=== PATIENT | male | born 1980 | race Caucasian/White ===

== ENCOUNTER 2017-09-13 14:58 | Inpatient (IN) | payer SELFPAY ==
[~2017-09-13 14:58] MED LIST: Heparin 1,000 UNITS/ML VIAL ONE
[2017-09-13 15:42] LABS: Hemoglobin 14.5 g/dL (14.0-18.0); Mean Corpuscular HGB CONC 33.5 g/dL (32.0-36.0); Mean Corpuscular Hemoglobin 32.7 pg (27.0-31.0); Mean Corpuscular Volume 97.7 fl (80.0-94.0); Platelet Count 357 thou/uL (130-400); RBC Distribution Width 12.7 % (11.5-14.5); Red Blood Cell (RBC) Count 4.43 mill/uL (4.70-6.10); White Blood Cell (WBC) Count 26.2 thou/uL (4.8-10.8)
[2017-09-13 15:45] LABS: INR-International Normal Ratio 1.1; PTT 33.5 SEC (22.9-36.1); Prothrombin Time 14.6 SEC (12.0-14.7)
[2017-09-13 15:56] LABS: Band 21 % (5-11); Dohle Bodies SLIGHT; Lymphocytes 1 % (21-51); MDiff Complete? YES; Metamyelocyte 1 % (0-0); Monocytes 9 % (0-10); Neutrophil 65 % (42-75); PLT Morphology Comment Appears Adequate; RBC Morphology Normal; Reactive Lymphocytes 3 % (0-10); Toxic Granulation SLIGHT; Vacuoles SLIGHT
--- NOTE | 2017-09-13 15:59 | RAD ---
PORTABLE CHEST: Date: 09/13/17 HISTORY: Preop. FINDINGS: Heart size and mediastinum are within normal limits. Lungs are clear of infiltrates. No bony findings . IMPRESSION: No active intrathoracic disease. POS: [facility]
[2017-09-13 16:01] LABS: CRP (Inflammatory) 26.49 mg/dL (= or < 0.5)
[2017-09-13 16:02] LABS: ALT (SGPT) 15 U/L (8-55); AST (SGOT) 17 U/L (5-34); Alkaline Phosphatase 150 U/L (40-150); Anion Gap 13 mmol/L (10-20); BUN (Urea Nitrogen) 5 mg/dL (8.9-20.6); Bilirubin, Total 0.6 mg/dL (0.2-1.2); Calc. Creatinine Clearance 0 mL/min (70-130); Calcium 9.4 mg/dL (7.8-10.44); Carbon Dioxide 31 mmol/L (22-29); Chloride 96 mmol/L (98-107); Estimated GFR-MDRD Greater than 90; Globulin 4.3 g/dL (2.4-3.5); Glucose 92 mg/dL (70-105); Potassium 3.1 mmol/L (3.5-5.1); Protein, Total 7.3 g/dL (6.0-8.3); Sodium 137 mmol/L (136-145)
[2017-09-13] MEDS ORDERED: Lidocaine 2% PF 5 ML VIAL ONE (16:29)
[2017-09-13] MEDS ORDERED: Morphine 4 MG/ML Carpuject IVP PRN (17:11)
[2017-09-13] MEDS ORDERED: Acetaminophen 325 MG TAB PO PRN (17:11)
[2017-09-13] MEDS ORDERED: Promethazine HCl 25 MG/ML VIAL IM PRN (17:11)
[2017-09-13] MEDS ORDERED: Ondansetron HCl/PF 4 MG/2 ML Vial IVP PRN (17:11)
[2017-09-13] MEDS ORDERED: Fentanyl 100 MCG/2 ML VIAL SLOW IVP PRN (17:11)
[2017-09-13] MEDS ORDERED: traMADol HCl 50 MG TAB PO PRN (17:11)
[2017-09-13] MEDS ORDERED: HYDROcodone/Acetaminophen 10/325 mg Tablet PO PRN (17:11)
[2017-09-13 17:12] LABS: Body Fluid Source SYNOVIAL FLUID
[2017-09-13 17:13] LABS: BF Color Red; Clarity Cloudy/Turbid (Clear); RBC Count-Automated 33000 /cumm; Tube # EDTA; WBC/NonHematic-Auto 540 /cumm
[2017-09-13] MEDS ORDERED: Piperacillin/Tazobactam 3.375 GM in Sodium Chloride 0.9% 100 ML IVPB SCH (17:15)
[2017-09-13] MEDS ORDERED: Adacel (T-DAP) 0.5 ML VIAL ONE ×2 (17:32→17:59)
--- NOTE | 2017-09-13 17:37 | CON ---
DATE OF CONSULTATION: 09/13/2017 HISTORY OF PRESENT ILLNESS: We were asked to see patient by the ER, the patient was apparently trans ferred from [facility] in [place] for concern of necrotizing fasciitis. Patient states earlier this w douglas on Sunday and Sunday timeframe, he started having some knee pain. The knee was starting to get swollen and painful. He went in to get seen, his knee was not tapped, he was admitted, put on some antibiotics. He states his white blood cell count has increased when he came in for the doctors and he was put on some antibiotics, got a little bit better, but then his whole left lower extremity star kera to balloon up, get red tissue blisters and significantly painful. He has multiple areas of his l eg where he is outlined from changes in the redness and swelling and shows quite a quick progression. The patient was then treated with further IV antibiotics, he states 5 different ones, but the leg c ontinued to get progressively worse. He has sensations in the legs and a lot of pain. The patient p tuyet to this states he is very healthy. 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 He does not see a doctor regularly because he has no current h ealth issues that he knows of. ALLERGIES: No allergies. CURRENT MEDICATIONS: Antibiotics, he has received cefepime, clindamycin. He has had Lovenox, vancom ycin, metronidazole and medications for pain. FAMILY HISTORY: Noncontributory. SOCIAL HISTORY: He works in construction, . Has a few cigarettes a day, chews tobacco, has o ccasional ETOH beverage beer every once in a while. PAST SURGICAL HISTORY: None. REVIEW OF SYSTEMS: Healthy other than this significantly painful left lower extremity. PHYSICAL EXAMINATION: GENERAL: Well-nourished, well-developed male resting in bed in moderate amount of distress. He just had his knee tap, so he is in quite a bit of pain. Speech clear. Answers questions appropriately, he is alert and oriented x3. HEENT: Normal exam. Face is symmetric. Tongue midline. NECK: Supple. EXTREMITIES: Upper extremities: Equal size, shape, symmetry, normal bulk and tone. Lower extremiti es, right lower extremity: Normal exam. Left lower extremity, entire leg is much larger with much m ore edema and redness than the right lower extremity, very warm to the top all the way up to the groi n which is circumferential around the whole leg and posterior leg has multiple areas of tissue bliste rs. Anterior leg, his knee is a little weepy with some yellow fluid from the recent knee tap. He gay s good sensations on the left lower extremity. DP, PT pulses on the left lower extremity are faintly palpable, right are normal. He is able to move the left lower extremity fair at best. It is in suc h amount of pain and so swelling, he is unable to move foot, ankle, knee. Hip, he can move in and ou t okay and does not have a lot of pain. His knee is definitely palpable for increased amount of flui d and very tender to palpation. ASSESSMENT: 1. Significant cellulitis to the left lower extremity. 2. Knee effusion. PLAN: I spoke with patient, would like to get him into the OR this evening to get that knee washed o ut. He will probably need Infectious Disease to follow him, also knee fluid has been sent off for cu lture, sensitivity, protein, cell count, Gram stain, uric acid and crystals per the ER physician. We will keep him n.p.o. He has not eaten today. Consent him for I and D washout of that knee, get him some pain meds for comfort. I have explained the procedure to the patient. He is amenable to go fo rth with surgical washout. This is Jack Mason PA-C dictating for Dr. Glynn Agarwal.
[2017-09-13 17:46] LABS: BF Segmented Neutrophils 67 %; Cell Count Non Hematic 31 %; Lymphocytes 2 %
[2017-09-13] MEDS ORDERED: Neomycin-Polymyxin 1 ML AMP ONE (17:59)
[2017-09-13] MEDS ORDERED: Ketorolac Tromethamine 30 MG/ML VIAL IVP SCH (18:00)
[2017-09-13] MEDS ORDERED: HYDROcodone/Acetaminophen 10/325 mg Tablet ONE (18:42)
[2017-09-13] MEDS: HYDROcodone/Acetaminophen 10/325 mg Tablet PO PRN (21:04)
[2017-09-13] MEDS: Ketorolac Tromethamine 30 MG/ML VIAL IVP SCH (21:05)
[2017-09-13] MEDS: Clindamycin/D5W 900 MG in Premix Bag 1 BAG IVPB SCH (23:16)
[2017-09-14] MEDS: HYDROcodone/Acetaminophen 10/325 mg Tablet PO PRN ×6 (01:02→23:08)
[2017-09-14 02:27] VITALS: BMI 25.9
[2017-09-14] MEDS: Ketorolac Tromethamine 30 MG/ML VIAL IVP SCH ×4 (03:48→21:13)
[2017-09-14 04:50] LABS: Band 17 % (5-11); Hemoglobin 12.7 g/dL (14.0-18.0); Lymphocytes 7 % (21-51); MDiff Complete? YES; Mean Corpuscular HGB CONC 33.2 g/dL (32.0-36.0); Mean Corpuscular Hemoglobin 32.5 pg (27.0-31.0); Mean Corpuscular Volume 97.9 fl (80.0-94.0); Mean Platelet Volume 7.2 fL (7.4-10.4); Metamyelocyte 1 % (0-0); Monocytes 10 % (0-10); Neutrophil 65 % (42-75); PLT Morphology Comment Appears Adequate; Platelet Count 361 thou/uL (130-400); RBC Distribution Width 12.5 % (11.5-14.5); White Blood Cell (WBC) Count 23.5 thou/uL (4.8-10.8)
[2017-09-14] MEDS: Vancomycin HCl 1 GM in Premix Bag 1 BAG IVPB SCH ×2 (05:22→17:36)
[2017-09-14] MEDS: Clindamycin/D5W 900 MG in Premix Bag 1 BAG IVPB SCH ×3 (05:22→21:22)
[2017-09-14] MEDS: Enoxaparin Sodium 30 MG/0.3 ML SYRINGE SC SCH (09:51)
[2017-09-14] MEDS: cefTRIAXone\\ROCEPHIN 2 GM in Sodium Chloride 0.9% 100 ML IVPB SCH (15:07)
--- NOTE | 2017-09-14 15:11 | CON ---
DATE OF CONSULTATION: 09/14/2017 REASON FOR CONSULTATION: Left lower extremity inflammatory process. 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 Patient did not pay much attention to the injury he had pants on and felt a little bit of pain, but preceded with his work in the next few days, he noticed redness around the prepatellar region as well as an area of blistering in the popliteal fossa left lower extremity. He then noticed extension of the inflammatory process along the lateral aspect of the left leg, which prompted him to go to the emergency room in [facility] and he was then admitted, given antimicrobial therapy and a few days later was transferred to [facility] and he was given more antimicrobials and then transferred over here because of worsening of the neutrophilia and concern with possible necrotizing infection. MRI that was done twice, the first one in [place] and the second in [place]. The second report shows a posterior horn of the medial meniscus and small joint effusion and extensive evidence of cellulitis, but no organized fluid collection noted. No bony abnormalities noted. The second MRI did not show any facial involvement. Currently, he feels some improvement in the inflammatory changes, although there are quite extensive still the pain is light to moderate. Denies any headaches, visual symptoms, sore throat, odynophagia, dysphagia, no cough or sputum production or chest pain, no abdominal pain, no diarrhea, no genitourinary symptoms. He does not have much pain in the knee, left side. PAST MEDICAL HISTORY: Otherwise, negative. PAST SURGICAL HISTORY: He has no prior surgical history. SOCIAL HISTORY: Works in construction. He drinks and smokes. ALLERGIES: None. CURRENT MEDICATIONS: Include clindamycin and vancomycin. FAMILY HISTORY: Noncontributory. PHYSICAL EXAMINATION: VITAL SIGNS: With normal temperature, blood pressure 134/85, pulse 94, respirations 16-20, O2 saturation 98%. GENERAL: He does not appear in distress. The left lower extremity shows extensive erythema extending from the ankle all the way to the gluteal skin region with the blistering along the lateral aspect and medial aspect. There is some rupture of some blisters on the medial aspect. He has an area of brownish at the popliteal crease left side. There is a number of blisters along the lateral aspect extending from the ankle all the way to the lateral thigh. No other skin lesions. No petechiae or purpura. No lymphadenopathy. HEENT: Noncontributory. NECK: Supple. LUNGS: With symmetric, clear breath sounds. HEART: S1, S2, regular rate. No S3 or S4. ABDOMEN: Soft, not distended, or tender. No ascites. No bladder distention. EXTREMITIES: No other joint inflammatory process. The left knee has some fluid in it still, but not very tender. The prepatellar region is not tender. Range of motion is somewhat limited because of the inflammatory process. LABORATORY DATA: Shows a white cell count was 26,000, now 23,000, hemoglobin 14 and 12, platelets 261, 65% neutrophils, bands are down from 17%. Chemistry with a carbon dioxide 31, creatinine 0.77. Liver profile normal. CRP 26. Albumin 3.0. Chest x-ray with no findings of significance. The patient had synovial fluid aspirated by Orthopedic Surgery and the analysis of the material showed only 540 wbc's and mostly rbc's, probably from the tip predominance of segmented neutrophils. ASSESSMENT: Inflammatory process right lower extremity with evidence of cellulitis and reactive fluid in the left knee without significant amount of WBCs per cubic millimeter, not suggestive of infective arthritis. DISCUSSION: Differential diagnosis includes streptococcal cellulitis either group B or group A streptococcal cellulitis. Vibrio or Staphylococcus less likely. Septic arthritis is less likely since the amount of WBCs per cubic millimeter in the synovial fluid is less than what one would expect with infectious arthritis. Necrotizing fasciitis is less likely as well. We will submit cultures from one of the blister fluid, although those typically are negative. Add Rocephin to the current regimen. Continue remainder antimicrobials, treat with antimicrobials only for the time being, I do not think he needs any surgical intervention at this point in time. Keep the extremity elevated and check HIV, hepatitis C serology. MTDD
--- NOTE | 2017-09-14 15:13 | PDOC.PN ---
- Subjective Encounter Start Date: 09/14/17 Encounter Start Time: 15:17 Subjective: No new complaints. Reports pain well controlled. -: No acute events overnight. - Objective MAR Reviewed: Yes Vital Signs & Weight: Vital Signs (12 hours) Temp Pulse Resp BP Pulse Ox 09/14/17 11:10 98.2 F 94 20 134/85 98 09/14/17 08:00 98.2 F 94 16 09/14/17 07:15 98.2 F 94 16 138/85 96 09/14/17 05:00 97.9 F 98 19 127/75 97 Weight Weight 196 lb 13.965 oz I&O: 09/13/17 09/14/17 09/15/17 06:59 06:59 06:59 Intake Total 1300 Output Total 1525 Balance -225 Result Diagrams: 09/14/17 03:38 09/13/17 15:34 Phys Exam - Physical Examination Constitutional: NAD HEENT: PERRLA, moist MMs, sclera anicteric Neck: supple, full ROM Respiratory: no wheezing, no rales, no rhonchi, clear to auscultation bilateral Cardiovascular: RRR, no significant murmur, no rub Gastrointestinal: soft, non-tender, no distention, positive bowel sounds Musculoskeletal: edema present LLE up to groin. Neurological: non-focal, moves all 4 limbs Psychiatric: normal affect, A&O x 3 Deviation from normal: Marked erythema, edema, differential warmth and scattered blisters Dx/Plan (1) Cellulitis of left lower extremity Code(s): L03.116 - CELLULITIS OF LEFT LOWER LIMB Status: Acute Comment: Initial concern for necrotizing fasciitis. Cultures taken Reviwed by ID and started on Ceftriaxone, Vanc and clindamycin. (2) Knee effusion, left Code(s): M25.462 - EFFUSION, LEFT KNEE Status: Acute Plan: s/p washout. - Plan cont current plan of care, continue antibiotics, DVT proph w/lovenox f/u blood cultures, hepatitis and HIV screening. -: Continue broad spectrum antibiotics. -: Ensure adequate pain control. * .
[2017-09-14 17:14] LABS: HIV (1/2) Antibody/Antigen Non-Reactive (NonReactive); HIV 1/2 INDEX 0.57 S/CO (<1.00); Hep C IgG Ab Non-Reactive (NonReactive); Hep C Index 0.07 S/CO (0-0.79)
[2017-09-14] MEDS: Potassium Chloride 20 MEQ TAB PO SCH (17:36)
[2017-09-15] MEDS: Ketorolac Tromethamine 30 MG/ML VIAL IVP SCH ×4 (03:06→21:37)
[2017-09-15 04:57] LABS: Anion Gap 11 mmol/L (10-20); BUN (Urea Nitrogen) 6 mg/dL (8.9-20.6); Calc. Creatinine Clearance 184 mL/min (70-130); Calcium 8.7 mg/dL (7.8-10.44); Carbon Dioxide 29 mmol/L (22-29); Chloride 100 mmol/L (98-107); Estimated GFR-MDRD Greater than 90; Glucose 114 mg/dL (70-105); Potassium 3.6 mmol/L (3.5-5.1); Sodium 136 mmol/L (136-145); Vancomycin, Trough 5.1 ug/mL
[2017-09-15] MEDS: Vancomycin HCl 1 GM in Premix Bag 1 BAG IVPB SCH ×2 (05:00→17:27)
[2017-09-15 05:31] LABS: Band 16 % (5-11); Eosinophils 3 % (0-10); Hemoglobin 13.3 g/dL (14.0-18.0); Lymphocytes 14 % (21-51); MDiff Complete? YES; Macrocytosis SLIGHT = 6-15 cells (100X) (0-5/hpf); Mean Corpuscular HGB CONC 32.5 g/dL (32.0-36.0); Mean Corpuscular Hemoglobin 32.2 pg (27.0-31.0); Mean Platelet Volume 6.9 fL (7.4-10.4); Metamyelocyte 4 % (0-0); Monocytes 6 % (0-10); Myelocyte 2 % (0-0); Neutrophil 55 % (42-75); PLT Morphology Comment Appears Increased; Platelet Count 483 thou/uL (130-400); RBC Distribution Width 12.6 % (11.5-14.5); Red Blood Cell (RBC) Count 4.13 mill/uL (4.70-6.10); White Blood Cell (WBC) Count 22.4 thou/uL (4.8-10.8)
[2017-09-15] MEDS: Clindamycin/D5W 900 MG in Premix Bag 1 BAG IVPB SCH ×3 (06:13→21:37)
[2017-09-15] MEDS: HYDROcodone/Acetaminophen 10/325 mg Tablet PO PRN ×4 (07:37→19:40)
[2017-09-15] MEDS: Enoxaparin Sodium 30 MG/0.3 ML SYRINGE SC SCH (07:38)
[2017-09-15] MEDS: Potassium Chloride 20 MEQ TAB PO SCH ×2 (07:38→17:26)
--- NOTE | 2017-09-15 11:52 | PDOC.PN ---
- Subjective Encounter Start Date: 09/15/17 Encounter Start Time: 11:50 Subjective: LL leg still uncomfortable, no fever, chills - Objective MAR Reviewed: Yes Vital Signs & Weight: Vital Signs (12 hours) Temp Pulse Resp BP Pulse Ox 09/15/17 07:58 98.7 F 88 18 09/15/17 07:05 99.3 F 98 18 156/84 H 98 09/15/17 04:00 98.7 F 88 18 131/78 96 09/15/17 00:00 98.3 F 95 18 150/82 H 94 L Weight Weight 196 lb 13.965 oz I&O: 09/14/17 09/15/17 09/16/17 06:59 06:59 06:59 Intake Total 1300 2800 Output Total 1525 1600 Balance -225 1200 Result Diagrams: 09/15/17 04:15 09/15/17 04:15 Phys Exam - Physical Examination Neck: no JVD Respiratory: clear to auscultation bilateral Cardiovascular: RRR, no significant murmur Gastrointestinal: soft, positive bowel sounds Musculoskeletal: no edema Deviation from normal: marked erythema ankle to knee on Left Dx/Plan (1) Cellulitis of left lower extremity Code(s): L03.116 - CELLULITIS OF LEFT LOWER LIMB Status: Acute Comment: Initial concern for necrotizing fasciitis. Cultures taken Reviwed by ID and started on Ceftriaxone, Vanc and clindamycin. (2) Knee effusion, left Code(s): M25.462 - EFFUSION, LEFT KNEE Status: Acute - Plan cont iv antibx, C&S neg to date -: adequate pain control * .
--- NOTE | 2017-09-15 14:17 | PRG ---
DATE OF SERVICE: 09/15/2017 SUBJECTIVE: Little bit better, but not much, has still quite a bit of pain. No headaches, respirato ry symptoms, no back pain, no abdominal pain, no diarrhea. Voiding without difficulty. T-max 99.3. Other vital signs not remarkable. Left lower extremity still with quite a bit of inflammatory barreto es. The extent of the erythema is about the same as previously noted. A lot of the blisters are now rupturing and the being unroofed with exposure of the underlying dermal layer, which has a hemorrhag ic component. No purulence noted. The extremity is less swollen than before and less tender. No mai int inflammatory process noted. OBJECTIVE: HEENT: His ocular movements are conjugate. Oral cavity normal. NECK: Supple. LUNGS: Clear to auscultation and percussion. HEART: S1, S2, regular rate. ABDOMEN: Soft and not distended. EXTREMITIES: He is able to move all extremities equally except for limitations imposed by the inflam matory process of left lower extremity. NEUROLOGIC: Cognitive function normal. LABORATORY DATA: White cell count down to 22.4, hemoglobin 13, platelets 483. Still with 16% bands. Chemistries are essentially normal. CRP of 15.4, hepatitis C and HIV serology negative. Microbiol ogy with negative blood cultures and the knee aspirate negative as well. There is a possible growth in nutrient broth subculture in progress. ASSESSMENT: Extensive cellulitis of left lower extremity with some improvement over the past few day s. Most likely scenario is Streptococcal cellulitis, probably with Streptococcus pyogenes. Continue current regimen. Wait on the cultures from the knee. The knee fluid itself was not typical of what one would see with septic arthritis, although he may have early implantation of streptococcal coloni es in the knee, which led to the reaction noted. If it turns out that he does have Streptococcus pyo genes in the knee or other streptococcal pathogen, then that would require extension of the treatment , but probably not arthroscopic debridement at least according to the current clinical findings. He still has quite a bit of inflammatory changes and will likely remain in the hospital for quite a f ew more days.
[2017-09-15] MEDS: Polyethylene Glycol 3350 17 GM Packet PO SCH (14:21)
[2017-09-15] MEDS ORDERED: Polyethylene Glycol 3350 17 GM Packet PO SCH (14:30)
[2017-09-15] MEDS: cefTRIAXone\\ROCEPHIN 2 GM in Sodium Chloride 0.9% 100 ML IVPB SCH (15:31)
[2017-09-15] MEDS: traMADol HCl 50 MG TAB PO PRN ×2 (16:11→21:37)
--- NOTE | 2017-09-15 17:05 | EKG ---
Test Reason : Blood Pressure : / mmHG Vent. Rate : 097 BPM Atrial Rate : 097 BPM P-R Int : 136 ms QRS Dur : 094 ms QT Int : 364 ms P-R-T Axes : 045 020 014 degrees QTc Int : 462 ms Normal sinus rhythm Minimal voltage criteria for LVH, may be normal variant Nonspecific ST and T wave abnormality Prolonged QT Abnormal ECG Confirmed by JOSE NGUYEN D.O. ([id number]), telegraph editor DOMINGO DRAKE ([id number] on 09/15/2017 5:04:38 PM Referred By: Confirmed By:JOSE NGUYEN D.O.
[2017-09-16] MEDS: HYDROcodone/Acetaminophen 10/325 mg Tablet PO PRN ×6 (00:28→20:38)
[2017-09-16] MEDS: Ketorolac Tromethamine 30 MG/ML VIAL IVP SCH ×4 (03:31→20:39)
[2017-09-16] MEDS: traMADol HCl 50 MG TAB PO PRN ×3 (03:32→17:59)
[2017-09-16 04:31] LABS: Band 17 % (5-11); Hemoglobin 13.3 g/dL (14.0-18.0); Lymphocytes 9 % (21-51); MDiff Complete? YES; Mean Corpuscular HGB CONC 31.2 g/dL (32.0-36.0); Mean Corpuscular Hemoglobin 30.8 pg (27.0-31.0); Mean Corpuscular Volume 98.7 fl (80.0-94.0); Metamyelocyte 2 % (0-0); Monocytes 3 % (0-10); Neutrophil 69 % (42-75); PLT Morphology Comment Appears Increased; Platelet Count 485 thou/uL (130-400); RBC Distribution Width 12.7 % (11.5-14.5); White Blood Cell (WBC) Count 20.4 thou/uL (4.8-10.8)
[2017-09-16] MEDS: Vancomycin HCl 1 GM in Premix Bag 1 BAG IVPB SCH ×2 (04:38→16:51)
[2017-09-16 04:42] LABS: Anion Gap 11 mmol/L (10-20); BUN (Urea Nitrogen) 5 mg/dL (8.9-20.6); Calc. Creatinine Clearance 205 mL/min (70-130); Calcium 8.4 mg/dL (7.8-10.44); Carbon Dioxide 25 mmol/L (22-29); Chloride 104 mmol/L (98-107); Estimated GFR-MDRD Greater than 90; Glucose 78 mg/dL (70-105); Sodium 135 mmol/L (136-145)
[2017-09-16] MEDS: Clindamycin/D5W 900 MG in Premix Bag 1 BAG IVPB SCH ×3 (06:39→21:43)
[2017-09-16] MEDS ORDERED: Milk Of Magnesia 30 ML UDCUP PO PRN (07:13)
[2017-09-16] MEDS ORDERED: hydrALAZINE 20 MG/ML VIAL SLOW IVP PRN (07:13)
[2017-09-16] MEDS ORDERED: Ondansetron ODT 4 MG TAB PO PRN (07:13)
[2017-09-16] MEDS ORDERED: Temazepam 15 MG CAP PO PRN (07:13)
[2017-09-16] MEDS ORDERED: Senokot 8.6 MG TAB PO PRN (07:13)
[2017-09-16] MEDS ORDERED: HYDROcodone/Acetaminophen 5/325 mg Tablet PO PRN (07:13)
[2017-09-16] MEDS ORDERED: Chloraseptic Spray 180 ml Bottle PO PRN (07:13)
[2017-09-16] MEDS ORDERED: Mag-Al 1200 mg/1200 mg/30 ML UDCUP PO PRN (07:13)
[2017-09-16] MEDS ORDERED: Diabetic Tussin 200 MG/10 ML UDCUP PO PRN (07:13)
[2017-09-16] MEDS ORDERED: Loperamide HCl 2 MG CAP PO PRN (07:13)
[2017-09-16] MEDS ORDERED: Sodium Chloride 0.65% Nasal 44 ML BOT EA NARE PRN (07:13)
[2017-09-16] MEDS ORDERED: Eucerin (Mineral Oil/Petrolatum,White) 30 gm Jar TOP PRN (07:13)
[2017-09-16] MEDS ORDERED: Loratadine 10 MG TAB PO PRN (07:13)
[2017-09-16] MEDS ORDERED: Artificial Tears 18 DROP/0.9 ML EA EYE PRN (07:13)
[2017-09-16] MEDS: Enoxaparin Sodium 30 MG/0.3 ML SYRINGE SC SCH (08:39)
[2017-09-16] MEDS: Famotidine 20 MG TAB PO SCH ×2 (08:40→20:39)
--- NOTE | 2017-09-16 10:05 | PDOC.PN ---
- Subjective Encounter Start Date: 09/16/17 Encounter Start Time: 08:00 -: old records requested/rev Patient seen and examined. No new complaints. No overnight events - Objective MAR Reviewed: Yes Vital Signs & Weight: Vital Signs (12 hours) Temp Pulse Resp BP Pulse Ox 09/16/17 08:57 97.9 F 86 16 93 L 09/16/17 07:47 97.9 F 86 16 134/79 93 L 09/16/17 07:10 97.9 F 86 16 134/79 93 L 09/16/17 05:28 97 09/16/17 04:00 98.3 F 92 18 135/72 97 09/15/17 23:58 98.1 F 90 20 130/75 95 Weight Weight 196 lb 13.965 oz I&O: 09/15/17 09/16/17 09/17/17 06:59 06:59 06:59 Intake Total 2800 2600 Output Total 1600 1900 Balance 1200 700 Result Diagrams: 09/16/17 03:41 09/16/17 03:41 Phys Exam - Physical Examination Constitutional: NAD HEENT: PERRLA, moist MMs, sclera anicteric Neck: no JVD, supple Respiratory: no wheezing, no rales, no rhonchi Cardiovascular: RRR, no significant murmur, no rub Gastrointestinal: soft, non-tender, no distention, positive bowel sounds Musculoskeletal: no edema, pulses present left knee and leg swelling and tender Neurological: non-focal, normal sensation, moves all 4 limbs Psychiatric: normal affect, A&O x 3 Skin: no rash, normal turgor Dx/Plan (1) Cellulitis of left lower extremity Code(s): L03.116 - CELLULITIS OF LEFT LOWER LIMB Status: Acute Comment: (2) Hypokalemia Code(s): E87.6 - HYPOKALEMIA Status: Acute (3) Knee effusion, left Code(s): M25.462 - EFFUSION, LEFT KNEE Status: Acute - Plan cont current plan of care, continue antibiotics * pain control * continue IV antibiotics * repeat labs tomorrow * medication reviewed as below * symptomatic treatment. Review of Systems - Review of Systems ENT: negative: Ear Pain, Ear Discharge, Nose Pain, Nose Discharge, Nose Congestion, Mouth Pain, Mouth Swelling, Throat Pain, Throat Swelling, Other Respiratory: negative: Cough, Dry, Shortness of Breath, Hemoptysis, SOB with Excertion, Pleuritic Pain, Sputum, Wheezing Cardiovascular: negative: chest pain, palpitations, orthopnea, paroxysmal nocturnal dyspnea, edema, light headedness, other Gastrointestinal: negative: Nausea, Vomiting, Abdominal Pain, Diarrhea, Constipation, Melena, Hematochezia, Other Genitourinary: negative: Dysuria, Frequency, Incontinence, Hematuria, Retention , Other Musculoskeletal: Leg Pain. negative: Neck Pain, Shoulder Pain, Arm Pain, Back Pain, Hand Pain, Foot Pain, Other Skin: negative: Rash, Lesions, Isaac, Bruising, Other - Medications/Allergies Allergies/Adverse Reactions: Allergies Allergy/AdvReac Type Severity Reaction Status Date / Time No Known Allergies Allergy Unverified 09/13/17 17:12 Medications: Current Medications Acetaminophen (Tylenol) 650 mg PO Q6H PRN PRN Reason: Headache/Temp >101F/Mild Pain Hydrocodone Bitart/Acetaminophen (Linneus 10/325) 1 tab PO Q4H PRN PRN Reason: Moderate Pain (4-6) Hydrocodone Bitart/Acetaminophen (Linneus 10/325) 2 tab PO Q4H PRN PRN Reason: Severe Pain (7-10) Last Admin: 09/16/17 08:40 Dose: 2 tab Hydrocodone Bitart/Acetaminophen (Linneus 5/325) 1 tab PO Q4H PRN PRN Reason: Moderate Pain (4-6) Al Hydroxide/Mg Hydroxide (Maalox) 15 ml PO Q4H PRN PRN Reason: Heartburn or Indigestion Artificial Tears (Tears Naturale) 0 drop EA EYE PRN PRN PRN Reason: Dry Eyes Enoxaparin Sodium (Lovenox) 30 mg SC 0900 [facility] Last Admin: 09/16/17 08:39 Dose: 30 mg Famotidine (Pepcid) 20 mg PO BID [facility] Last Admin: 09/16/17 08:40 Dose: 20 mg Fentanyl (Sublimaze) 50 mcg SLOW IVP Q30M PRN PRN Reason: Severe breakthrough pain Guaifenesin (Robitussin Sf) 200 mg PO Q4H PRN PRN Reason: Cough Hydralazine HCl (Apresoline) 10 mg SLOW IVP Q4H PRN PRN Reason: Systolic BP > 180 Clindamycin Phosphate/Dextrose (900 mg/ Device) 50 mls @ 100 mls/hr IVPB Q8HR [facility] Last Admin: 09/16/17 06:39 Dose: 50 mls Vancomycin HCl 1 gm/ Device 200 mls @ 200 mls/hr IVPB 0500,1700 [facility] Last Admin: 09/16/17 04:38 Dose: 200 mls Ceftriaxone Sodium 2 gm/ (Sodium Chloride) 100 mls @ 200 mls/hr IVPB Q24HR [facility] Last Admin: 09/15/17 15:31 Dose: 100 mls Ketorolac Tromethamine (Toradol) 15 mg IVP 0300,0900,1500,2100 [facility] Stop: 09/18/17 21:01 Last Admin: 09/16/17 08:39 Dose: 15 mg Loperamide HCl (Imodium) 2 mg PO PRN PRN PRN Reason: Diarrhea/Loose Stools Loratadine (Claritin) 10 mg PO DAILYPRN PRN PRN Reason: Sinus Symptoms Magnesium Hydroxide (Milk Of Magnesium) 30 ml PO DAILYPRN PRN PRN Reason: Constipation Mineral Oil/White Petrolatum (Eucerin Cream) 0 gm TOP BIDPRN PRN PRN Reason: Dry Skin Morphine Sulfate (Morphine) 2 mg IVP Q2H PRN PRN Reason: Moderate Pain (4-6) Morphine Sulfate (Morphine) 4 mg IVP Q2H PRN PRN Reason: Severe Pain (7-10) Ondansetron HCl (Zofran) 4 mg IVP Q6H PRN PRN Reason: Nausea Ondansetron HCl (Zofran Odt) 4 mg PO Q6H PRN PRN Reason: Nausea/Vomiting Phenol (Chloraseptic Mitchell 180 Ml Bot) 0 ml PO PRN PRN PRN Reason: Sore Throat Polyethylene Glycol (Miralax) 17 gm PO DAILY [facility] Last Admin: 09/15/17 14:21 Dose: 17 gm Promethazine HCl (Phenergan) 12.5 mg IM Q4H PRN PRN Reason: Nausea Senna (Senokot) 2 tab PO HSPRN PRN PRN Reason: Constipation Sodium Chloride (Flush - Normal Saline) 10 ml IVF PRN PRN PRN Reason: Saline Flush Sodium Chloride (Flush - Normal Saline) 10 ml IVF Q12HR [facility] Last Admin: 09/16/17 08:41 Dose: 10 ml Sodium Chloride (Denali Nasal Mitchell 0.65%) 0 ml EA NARE QIDPRN PRN PRN Reason: Nasal Congestion Temazepam (Restoril) 15 mg PO HSPRN PRN PRN Reason: Insomnia Tramadol HCl (Ultram) 50 mg PO Q6H PRN PRN Reason: Mild Pain (1-3) Tramadol HCl (Ultram) 100 mg PO Q6H PRN PRN Reason: Moderate Pain (4-6) Last Admin: 09/16/17 03:32 Dose: 100 mg
[2017-09-16] MEDS: cefTRIAXone\\ROCEPHIN 2 GM in Sodium Chloride 0.9% 100 ML IVPB SCH (14:51)
[2017-09-17] MEDS: Ketorolac Tromethamine 30 MG/ML VIAL IVP SCH ×4 (03:17→21:02)
[2017-09-17] MEDS: HYDROcodone/Acetaminophen 10/325 mg Tablet PO PRN ×5 (03:18→20:02)
[2017-09-17] MEDS: Vancomycin HCl 1 GM in Premix Bag 1 BAG IVPB SCH ×2 (05:20→16:52)
[2017-09-17 06:04] LABS: Anion Gap 12 mmol/L (10-20); BUN (Urea Nitrogen) 9 mg/dL (8.9-20.6); Calc. Creatinine Clearance 190 mL/min (70-130); Calcium 8.8 mg/dL (7.8-10.44); Carbon Dioxide 26 mmol/L (22-29); Chloride 99 mmol/L (98-107); Estimated GFR-MDRD Greater than 90; Glucose 100 mg/dL (70-105); Potassium 4.5 mmol/L (3.5-5.1); Sodium 132 mmol/L (136-145)
[2017-09-17 06:16] LABS: Band 11 % (5-11); Eosinophils 1 % (0-10); Hemoglobin 13.1 g/dL (14.0-18.0); Lymphocytes 10 % (21-51); MDiff Complete? YES; Macrocytosis SLIGHT = 6-15 cells (100X) (0-5/hpf); Mean Corpuscular Hemoglobin 31.3 pg (27.0-31.0); Mean Platelet Volume 6.7 fL (7.4-10.4); Metamyelocyte 4 % (0-0); Monocytes 8 % (0-10); Myelocyte 1 % (0-0); Neutrophil 62 % (42-75); PLT Morphology Comment Appears Increased; Platelet Count 645 thou/uL (130-400); RBC Distribution Width 12.8 % (11.5-14.5); Reactive Lymphocytes 3 % (0-10); White Blood Cell (WBC) Count 25.2 thou/uL (4.8-10.8)
[2017-09-17] MEDS: Clindamycin/D5W 900 MG in Premix Bag 1 BAG IVPB SCH ×3 (06:37→21:03)
[2017-09-17] MEDS: Enoxaparin Sodium 30 MG/0.3 ML SYRINGE SC SCH (07:58)
[2017-09-17] MEDS: Famotidine 20 MG TAB PO SCH ×2 (07:58→20:04)
[2017-09-17] MEDS: Polyethylene Glycol 3350 17 GM Packet PO SCH (08:00)
--- NOTE | 2017-09-17 10:27 | PDOC.PN ---
- Subjective Encounter Start Date: 09/17/17 Encounter Start Time: 08:10 Patient seen and examined. No new complaints. No overnight events - Objective MAR Reviewed: Yes Vital Signs & Weight: Vital Signs (12 hours) Temp Pulse Resp BP BP Pulse Ox 09/17/17 08:20 98 F 85 16 92 L 09/17/17 07:28 98 F 85 16 136/82 92 L 09/17/17 04:00 91 F L 73 16 128/81 93 L Weight Weight 196 lb 13.965 oz I&O: 09/16/17 09/17/17 09/18/17 06:59 06:59 06:59 Intake Total 2600 Output Total 1900 0 2049 Balance Result Diagrams: 09/17/17 05:15 09/17/17 05:15 Phys Exam - Physical Examination Constitutional: NAD HEENT: PERRLA, moist MMs, sclera anicteric Neck: no JVD, supple Respiratory: no wheezing, no rales, no rhonchi Cardiovascular: RRR, no significant murmur, no rub Gastrointestinal: soft, non-tender, no distention, positive bowel sounds left leg cellulitis getting worse Neurological: non-focal, normal sensation Psychiatric: normal affect, A&O x 3 Skin: no rash, normal turgor Dx/Plan (1) Cellulitis of left lower extremity Code(s): L03.116 - CELLULITIS OF LEFT LOWER LIMB Status: Acute Comment: (2) Hypokalemia Code(s): E87.6 - HYPOKALEMIA Status: Acute (3) Knee effusion, left Code(s): M25.462 - EFFUSION, LEFT KNEE Status: Acute - Plan cont current plan of care, continue antibiotics * today will plan for MRI * continue IV antibiotics as per ID team as below * medication reviewed as below * symptomatic treatment. Review of Systems - Review of Systems Eyes: negative: Pain, Vision Change, Conjunctivae Inflammation, Eyelid Inflammation, Redness, Other ENT: negative: Ear Pain, Ear Discharge, Nose Pain, Nose Discharge, Nose Congestion, Mouth Pain, Mouth Swelling, Throat Pain, Throat Swelling, Other Respiratory: negative: Cough, Dry, Shortness of Breath, Hemoptysis, SOB with Excertion, Pleuritic Pain, Sputum, Wheezing Cardiovascular: negative: chest pain, palpitations, orthopnea, paroxysmal nocturnal dyspnea, edema, light headedness, other Gastrointestinal: negative: Nausea, Vomiting, Abdominal Pain, Diarrhea, Constipation, Melena, Hematochezia, Other Genitourinary: negative: Dysuria, Frequency, Incontinence, Hematuria, Retention , Other Musculoskeletal: Leg Pain. negative: Neck Pain, Shoulder Pain, Arm Pain, Back Pain, Hand Pain, Foot Pain, Other Skin: negative: Rash, Lesions, Isaac, Bruising, Other - Medications/Allergies Allergies/Adverse Reactions: Allergies Allergy/AdvReac Type Severity Reaction Status Date / Time No Known Allergies Allergy Unverified 09/13/17 17:12 Medications: Current Medications Acetaminophen (Tylenol) 650 mg PO Q6H PRN PRN Reason: Headache/Temp >101F/Mild Pain Hydrocodone Bitart/Acetaminophen ([place] 10/325) 1 tab PO Q4H PRN PRN Reason: Moderate Pain (4-6) Hydrocodone Bitart/Acetaminophen ([place] 10/325) 2 tab PO Q4H PRN PRN Reason: Severe Pain (7-10) Last Admin: 09/17/17 07:28 Dose: 2 tab Hydrocodone Bitart/Acetaminophen ([place] 5/325) 1 tab PO Q4H PRN PRN Reason: Moderate Pain (4-6) Al Hydroxide/Mg Hydroxide (Maalox) 15 ml PO Q4H PRN PRN Reason: Heartburn or Indigestion Artificial Tears (Tears Naturale) 0 drop EA EYE PRN PRN PRN Reason: Dry Eyes Enoxaparin Sodium (Lovenox) 30 mg SC 0900 [facility] Last Admin: 09/17/17 07:58 Dose: 30 mg Famotidine (Pepcid) 20 mg PO BID [facility] Last Admin: 09/17/17 07:58 Dose: 20 mg Fentanyl (Sublimaze) 50 mcg SLOW IVP Q30M PRN PRN Reason: Severe breakthrough pain Guaifenesin (Robitussin Sf) 200 mg PO Q4H PRN PRN Reason: Cough Hydralazine HCl (Apresoline) 10 mg SLOW IVP Q4H PRN PRN Reason: Systolic BP > 180 Clindamycin Phosphate/Dextrose (900 mg/ Device) 50 mls @ 100 mls/hr IVPB Q8HR [facility] Last Admin: 09/17/17 06:37 Dose: 50 mls Vancomycin HCl 1 gm/ Device 200 mls @ 200 mls/hr IVPB 0500,1700 [facility] Last Admin: 09/17/17 05:20 Dose: 200 mls Ceftriaxone Sodium 2 gm/ (Sodium Chloride) 100 mls @ 200 mls/hr IVPB Q24HR [facility] Last Admin: 09/16/17 14:51 Dose: 100 mls Ketorolac Tromethamine (Toradol) 15 mg IVP 0300,0900,1500,2100 [facility] Stop: 09/18/17 21:01 Last Admin: 09/17/17 07:59 Dose: 15 mg Loperamide HCl (Imodium) 2 mg PO PRN PRN PRN Reason: Diarrhea/Loose Stools Loratadine (Claritin) 10 mg PO DAILYPRN PRN PRN Reason: Sinus Symptoms Magnesium Hydroxide (Milk Of Magnesium) 30 ml PO DAILYPRN PRN PRN Reason: Constipation Mineral Oil/White Petrolatum (Eucerin Cream) 0 gm TOP BIDPRN PRN PRN Reason: Dry Skin Morphine Sulfate (Morphine) 2 mg IVP Q2H PRN PRN Reason: Moderate Pain (4-6) Morphine Sulfate (Morphine) 4 mg IVP Q2H PRN PRN Reason: Severe Pain (7-10) Ondansetron HCl (Zofran) 4 mg IVP Q6H PRN PRN Reason: Nausea Ondansetron HCl (Zofran Odt) 4 mg PO Q6H PRN PRN Reason: Nausea/Vomiting Phenol (Chloraseptic [place] 180 Ml Bot) 0 ml PO PRN PRN PRN Reason: Sore Throat Polyethylene Glycol (Miralax) 17 gm PO DAILY [facility] Last Admin: 09/17/17 08:00 Dose: Not Given Promethazine HCl (Phenergan) 12.5 mg IM Q4H PRN PRN Reason: Nausea Senna (Senokot) 2 tab PO HSPRN PRN PRN Reason: Constipation Sodium Chloride (Flush - Normal Saline) 10 ml IVF PRN PRN PRN Reason: Saline Flush Sodium Chloride (Flush - Normal Saline) 10 ml IVF Q12HR [facility] Last Admin: 09/17/17 08:00 Dose: Not Given Sodium Chloride ([place] Nasal [place] 0.65%) 0 ml EA NARE QIDPRN PRN PRN Reason: Nasal Congestion Temazepam (Restoril) 15 mg PO HSPRN PRN PRN Reason: Insomnia Tramadol HCl (Ultram) 50 mg PO Q6H PRN PRN Reason: Mild Pain (1-3) Tramadol HCl (Ultram) 100 mg PO Q6H PRN PRN Reason: Moderate Pain (4-6) Last Admin: 09/16/17 17:59 Dose: 100 mg
--- NOTE | 2017-09-17 10:53 | PRG ---
DATE OF SERVICE: 09/17/2017 SUBJECTIVE: Feeling about the same. There is less swelling of the leg, but he noticed more swelling at the proximal left thigh. Pain is little bit less. No respiratory symptoms or abdominal pain, no diarrhea. OBJECTIVE: VITAL SIGNS: Looks like to have normalized now. Awake, alert, oriented, no distress. LUNGS: Clear. HEART: S1, S2, regular rate. ABDOMEN: Soft. EXTREMITIES: The left thigh area proximally has more edema. The remainder of the leg is less swolle n, more darker coloration of the cellulitis, and the areas of blistering, which are unroofed now and drying up. All the cultures are negative. LABORATORY DATA: Show the white cell count 25,000, hemoglobin 13, platelets 645. The differential s hows a decrease in bands to 11%. ASSESSMENT AND DISCUSSION: Extensive cellulitis left lower extremity with improvement. The worsenin g neutrophilia reflects increase in mature forms, but the bands are decreasing, which signifies dwayne nuing improvement. Continue current antimicrobials, beta hemolytic streptococcus are the most likely culprit here. He probably will need a few more days of treatment and therefore transition to oral t herapy. An MRI has been ordered and we will review the results, but I still believe that he continue s to improve steadily. The swelling in the proximal thighs probably due the positional changes.
[2017-09-17] MEDS: traMADol HCl 50 MG TAB PO PRN ×2 (10:55→16:55)
[2017-09-17] MEDS: cefTRIAXone\\ROCEPHIN 2 GM in Sodium Chloride 0.9% 100 ML IVPB SCH (13:59)
--- NOTE | 2017-09-17 14:23 | MRI ---
MRI LEFT LEG WITHOUT CONTRAST: Date: 09/17/17 HISTORY: Persistent left leg swelling and redness. Abscess. COMPARISON: Multiple prior examinations from outside facility, most recent 09/12/17. FINDINGS: Bones: There is normal marrow signal of the left lower extremity. No evidence for osteomyelitis. No fracture . No malalignment. Muscles: There is abnormal edema within the left biceps, as well as adductor musculature. There is also abnorm al edema within the vastus intermedius and lateralis muscles. Abnormal edema is seen within the anter ior, lateral, and posterior compartments below the knee. Evaluation for intramuscular abscess is limited without intravenous contrast. Soft Tissues: There is extensive collection of fluid superficial to the deep investing fascia of the musculature. T his extends all the way from the hip down to the ankle and is a complex collection. Especially at the level of the knee, this collection is marked with internal thickened soft tissue components. Evaluat ion is limited without intravenous contrast, although this is all likely an infected collection. Ther e is also abnormal collection of fluid in the deep intramuscular fascia of the calf involving the gas trocnemius and soleus muscles. There is a history of recent surgical intervention around the knee sang nt and this is unclear if this is post intervention or not. There are abnormal left inguinal lymph nodes which are increased in size, likely reactive. IMPRESSION: 1. Large crescentic collection of fluid extending from the lateral left thigh to the level of the an kle which at the level of the knee is markedly complex. This is concerning for infected fluid, as wel l as abscess formation. There is a history of recent surgical intervention around the knee joint and therefore it is unclear if the deep intramuscular fluid between the gastrocnemius musculature and curtis eus is postsurgical or not. 2. Abnormal edema suggesting infectious myositis of the adductors, as well as the vastus lateralis a nd biceps femoris musculature. There is also abnormal edema within the anterior and posterior compart ments below the knee joint, also concerning for infectious myositis. Evaluation for pyomyositis is li mited without intravenous contrast. 3. No evidence for osteomyelitis. POS: [facility]
[2017-09-18] MEDS: HYDROcodone/Acetaminophen 10/325 mg Tablet PO PRN ×6 (00:03→21:08)
[2017-09-18] MEDS: Ketorolac Tromethamine 30 MG/ML VIAL IVP SCH ×2 (03:03→08:15)
[2017-09-18] MEDS: Vancomycin HCl 1 GM in Premix Bag 1 BAG IVPB SCH (04:09)
[2017-09-18 04:42] LABS: #Eosinphils 0.2 thou/uL (0.0-0.7); #Lymphocytes 2.1 thou/uL (1.20-3.40); #Monocytes 1.2 thou/uL (0.11-0.59); #Neutrophils 12.6 thou/uL (1.40-6.50); %Basophils 0.2 % (0.0-1.0); %Eosinophils 1.1 % (0.0-10.0); %Lymphocytes 12.7 % (21.0-51.0); %Monocytes 7.4 % (0.0-10.0); %Neutrophils 78.5 % (42.0-75.0); Hemoglobin 12.9 g/dL (14.0-18.0); Mean Corpuscular Hemoglobin 31.6 pg (27.0-31.0); Mean Corpuscular Volume 98.9 fl (80.0-94.0); Mean Platelet Volume 6.5 fL (7.4-10.4); Platelet Count 681 thou/uL (130-400); RBC Distribution Width 12.6 % (11.5-14.5); Red Blood Cell (RBC) Count 4.09 mill/uL (4.70-6.10); White Blood Cell (WBC) Count 16.1 thou/uL (4.8-10.8)
[2017-09-18 05:07] LABS: Anion Gap 10 mmol/L (10-20); BUN (Urea Nitrogen) 9 mg/dL (8.9-20.6); Calc. Creatinine Clearance 187 mL/min (70-130); Calcium 8.8 mg/dL (7.8-10.44); Carbon Dioxide 28 mmol/L (22-29); Chloride 102 mmol/L (98-107); Estimated GFR-MDRD Greater than 90; Glucose 114 mg/dL (70-105); Sodium 136 mmol/L (136-145)
[2017-09-18] MEDS: Clindamycin/D5W 900 MG in Premix Bag 1 BAG IVPB SCH (05:24)
[2017-09-18] MEDS: Enoxaparin Sodium 30 MG/0.3 ML SYRINGE SC SCH (08:00)
[2017-09-18] MEDS: Famotidine 20 MG TAB PO SCH ×2 (08:00→20:14)
[2017-09-18] MEDS: Polyethylene Glycol 3350 17 GM Packet PO SCH (08:01)
--- NOTE | 2017-09-18 09:41 | PDOC.PN ---
- Subjective Encounter Start Date: 09/18/17 Encounter Start Time: 08:30 Patient seen and examined. No new complaints. No overnight events - Objective MAR Reviewed: Yes Vital Signs & Weight: Vital Signs (12 hours) Temp Pulse Resp BP Pulse Ox 09/18/17 09:23 97.7 F 73 16 94 L 09/18/17 08:51 97.7 F 73 16 121/76 94 L 09/18/17 04:00 98.7 F 73 20 117/73 93 L 09/18/17 00:00 98.0 F 79 20 129/78 94 L Weight Weight 196 lb 13.965 oz I&O: 09/17/17 09/18/17 09/19/17 06:59 06:59 06:59 Intake Total 1450 Output Total 2950 5550 Balance -2950 -4100 Result Diagrams: 09/18/17 04:01 09/18/17 04:01 Phys Exam - Physical Examination Constitutional: NAD HEENT: PERRLA, moist MMs, sclera anicteric Neck: no JVD, supple Respiratory: no wheezing, no rales, no rhonchi Cardiovascular: RRR, no significant murmur, no rub Gastrointestinal: soft, non-tender, no distention, positive bowel sounds left leg extensive cellulitis Neurological: non-focal, normal sensation, moves all 4 limbs Psychiatric: normal affect, A&O x 3 Skin: no rash, normal turgor Dx/Plan (1) Cellulitis of left lower extremity Code(s): L03.116 - CELLULITIS OF LEFT LOWER LIMB Status: Acute Comment: (2) Hypokalemia Code(s): E87.6 - HYPOKALEMIA Status: Acute (3) Knee effusion, left Code(s): M25.462 - EFFUSION, LEFT KNEE Status: Acute - Plan cont current plan of care, continue antibiotics * because of extensive and severe cellulitis, he will need more longer IV antibiotics as ordered * pain control with pain meds * medication reviewed as below * symptomatic treatment. Review of Systems - Review of Systems Constitutional: negative: fever, chills, sweats, weakness, malaise, other Eyes: negative: Pain, Vision Change, Conjunctivae Inflammation, Eyelid Inflammation, Redness, Other ENT: negative: Ear Pain, Ear Discharge, Nose Pain, Nose Discharge, Nose Congestion, Mouth Pain, Mouth Swelling, Throat Pain, Throat Swelling, Other Respiratory: negative: Cough, Dry, Shortness of Breath, Hemoptysis, SOB with Excertion, Pleuritic Pain, Sputum, Wheezing Cardiovascular: negative: chest pain, palpitations, orthopnea, paroxysmal nocturnal dyspnea, edema, light headedness, other Gastrointestinal: negative: Nausea, Vomiting, Abdominal Pain, Diarrhea, Constipation, Melena, Hematochezia, Other Genitourinary: negative: Dysuria, Frequency, Incontinence, Hematuria, Retention , Other Musculoskeletal: Leg Pain. negative: Neck Pain, Shoulder Pain, Arm Pain, Back Pain, Hand Pain, Foot Pain, Other - Medications/Allergies Allergies/Adverse Reactions: Allergies Allergy/AdvReac Type Severity Reaction Status Date / Time No Known Allergies Allergy Unverified 09/13/17 17:12 Medications: Current Medications Acetaminophen (Tylenol) 650 mg PO Q6H PRN PRN Reason: Headache/Temp >101F/Mild Pain Hydrocodone Bitart/Acetaminophen ([place] 10/325) 2 tab PO Q4H PRN PRN Reason: Severe Pain (7-10) Last Admin: 09/18/17 08:00 Dose: 2 tab Hydrocodone Bitart/Acetaminophen ([place] 5/325) 1 tab PO Q4H PRN PRN Reason: Moderate Pain (4-6) Al Hydroxide/Mg Hydroxide (Maalox) 15 ml PO Q4H PRN PRN Reason: Heartburn or Indigestion Artificial Tears (Tears Naturale) 0 drop EA EYE PRN PRN PRN Reason: Dry Eyes Enoxaparin Sodium (Lovenox) 30 mg SC 0900 [facility] Last Admin: 09/18/17 08:00 Dose: 30 mg Famotidine (Pepcid) 20 mg PO BID [facility] Last Admin: 09/18/17 08:00 Dose: 20 mg Fentanyl (Sublimaze) 50 mcg SLOW IVP Q30M PRN PRN Reason: Severe breakthrough pain Guaifenesin (Robitussin Sf) 200 mg PO Q4H PRN PRN Reason: Cough Hydralazine HCl (Apresoline) 10 mg SLOW IVP Q4H PRN PRN Reason: Systolic BP > 180 Clindamycin Phosphate/Dextrose (900 mg/ Device) 50 mls @ 100 mls/hr IVPB Q8HR [facility] Last Admin: 09/18/17 05:24 Dose: 50 mls Vancomycin HCl 1 gm/ Device 200 mls @ 200 mls/hr IVPB 0500,1700 [facility] Last Admin: 09/18/17 04:09 Dose: 200 mls Ceftriaxone Sodium 2 gm/ (Sodium Chloride) 100 mls @ 200 mls/hr IVPB Q24HR [facility] Last Admin: 09/17/17 13:59 Dose: 100 mls Ibuprofen (Motrin) 800 mg PO Q6H PRN PRN Reason: Mild Pain (1-3) Loperamide HCl (Imodium) 2 mg PO PRN PRN PRN Reason: Diarrhea/Loose Stools Loratadine (Claritin) 10 mg PO DAILYPRN PRN PRN Reason: Sinus Symptoms Magnesium Hydroxide (Milk Of Magnesium) 30 ml PO DAILYPRN PRN PRN Reason: Constipation Mineral Oil/White Petrolatum (Eucerin Cream) 0 gm TOP BIDPRN PRN PRN Reason: Dry Skin Morphine Sulfate (Morphine) 2 mg IVP Q2H PRN PRN Reason: Moderate Pain (4-6) Morphine Sulfate (Morphine) 4 mg IVP Q2H PRN PRN Reason: Severe Pain (7-10) Ondansetron HCl (Zofran) 4 mg IVP Q6H PRN PRN Reason: Nausea Ondansetron HCl (Zofran Odt) 4 mg PO Q6H PRN PRN Reason: Nausea/Vomiting Phenol (Chloraseptic [place] 180 Ml Bot) 0 ml PO PRN PRN PRN Reason: Sore Throat Polyethylene Glycol (Miralax) 17 gm PO DAILY [facility] Last Admin: 09/18/17 08:01 Dose: Not Given Promethazine HCl (Phenergan) 12.5 mg IM Q4H PRN PRN Reason: Nausea Senna (Senokot) 2 tab PO HSPRN PRN PRN Reason: Constipation Sodium Chloride (Flush - Normal Saline) 10 ml IVF PRN PRN PRN Reason: Saline Flush Sodium Chloride (Flush - Normal Saline) 10 ml IVF Q12HR [facility] Last Admin: 09/18/17 08:01 Dose: 10 ml Sodium Chloride ([place] Nasal [place] 0.65%) 0 ml EA NARE QIDPRN PRN PRN Reason: Nasal Congestion Temazepam (Restoril) 15 mg PO HSPRN PRN PRN Reason: Insomnia Tramadol HCl (Ultram) 50 mg PO Q6H PRN PRN Reason: Mild Pain (1-3) Tramadol HCl (Ultram) 100 mg PO Q6H PRN PRN Reason: Moderate Pain (4-6) Last Admin: 09/17/17 16:55 Dose: 100 mg
[2017-09-18] MEDS ORDERED: VANCOMYCIN IVPB PRN (11:00)
[2017-09-18] MEDS ORDERED: Vancomycin HCl 1.25 GM in Sodium Chloride 0.9% 250 ML 250 ML IVPB SCH (12:00)
[2017-09-18] MEDS: cefTRIAXone\\ROCEPHIN 2 GM in Sodium Chloride 0.9% 100 ML IVPB SCH (14:04)
[2017-09-18] MEDS: Ibuprofen 800 MG TAB PO PRN ×2 (14:04→20:13)
--- NOTE | 2017-09-18 14:19 | PRG ---
DATE OF SERVICE: 09/18/2017 SUBJECTIVE: Feeling better, less pain, more mobility, no respiratory symptoms, no diarrhea, no abdom inal pain, no dyspnea. OBJECTIVE: VITAL SIGNS: T-max 98.4, blood pressure 121/76, pulse 73, respiratory rate 16, O2 sat 94%. GENERAL: Appears in no distress. LUNGS: Clear. HEART: S1, S2, regular rate. ABDOMEN: Soft, nondistended. EXTREMITIES: Left leg with further decrease in the extent of swelling more dark change in the color of the skin or the erythema, which one usually sees with resolution of inflammatory process. The mor e proximal aspect is still with some more vivid erythema and edema, but not as much as before and thi s is more likely a positional change. All the blisters are drying up and has more of a dark hemorrha gic dried blood component at the base. Range of motion of all the joints is good. The knees, there is some limitation, but no pain associated with it. NEUROLOGIC: Cognitive function appears to be intact. LABORATORY DATA: White cell count down to 16,000, hemoglobin 12, platelets 681. The neutrophil perc entage is 78. Chemistries are normal except for mild hyperglycemia. Microbiology again negative for body fluid culture almost at the end of the incubation. ASSESSMENT AND DISCUSSION: Extensive cellulitis left lower extremity, probably secondary to beta-hem olytic streptococcus, improving neutrophilia now as we expected. MRI showed there was fluid areas, m ostly superficial, associated with cellulitis. Those are more likely to reflect serous fluid collect ion typically associated with streptococcal infections. At this point, we will discontinue vancomyci n and leave him on Rocephin alone.
[2017-09-18] MEDS: traMADol HCl 50 MG TAB PO PRN (17:30)
[2017-09-19] MEDS: HYDROcodone/Acetaminophen 10/325 mg Tablet PO PRN ×6 (02:48→23:31)
[2017-09-19 06:08] LABS: #Eosinphils 0.1 thou/uL (0.0-0.7); #Lymphocytes 1.8 thou/uL (1.20-3.40); #Monocytes 1.2 thou/uL (0.11-0.59); #Neutrophils 10.7 thou/uL (1.40-6.50); %Basophils 0.3 % (0.0-1.0); %Eosinophils 0.8 % (0.0-10.0); %Lymphocytes 13.3 % (21.0-51.0); %Monocytes 8.4 % (0.0-10.0); %Neutrophils 77.2 % (42.0-75.0); Hemoglobin 13.8 g/dL (14.0-18.0); Mean Corpuscular HGB CONC 32.3 g/dL (32.0-36.0); Mean Corpuscular Hemoglobin 31.9 pg (27.0-31.0); Mean Platelet Volume 6.6 fL (7.4-10.4); Platelet Count 796 thou/uL (130-400); RBC Distribution Width 12.8 % (11.5-14.5); Red Blood Cell (RBC) Count 4.33 mill/uL (4.70-6.10); White Blood Cell (WBC) Count 13.8 thou/uL (4.8-10.8)
[2017-09-19 06:19] LABS: Anion Gap 12 mmol/L (10-20); BUN (Urea Nitrogen) 11 mg/dL (8.9-20.6); Calc. Creatinine Clearance 193 mL/min (70-130); Calcium 9.6 mg/dL (7.8-10.44); Carbon Dioxide 27 mmol/L (22-29); Chloride 101 mmol/L (98-107); Estimated GFR-MDRD Greater than 90; Glucose 98 mg/dL (70-105); Potassium 4.4 mmol/L (3.5-5.1); Sodium 136 mmol/L (136-145)
[2017-09-19] MEDS: Ibuprofen 800 MG TAB PO PRN ×3 (06:48→23:31)
[2017-09-19] MEDS: Famotidine 20 MG TAB PO SCH ×2 (08:15→20:12)
[2017-09-19] MEDS: Enoxaparin Sodium 30 MG/0.3 ML SYRINGE SC SCH (08:15)
[2017-09-19] MEDS: Polyethylene Glycol 3350 17 GM Packet PO SCH (08:16)
--- NOTE | 2017-09-19 10:14 | PDOC.PN ---
- Subjective Encounter Start Date: 09/19/17 Encounter Start Time: 08:30 Patient seen and examined. No new complaints. No overnight events - Objective MAR Reviewed: Yes Vital Signs & Weight: Vital Signs (12 hours) Temp Pulse Resp BP BP Pulse Ox 09/19/17 08:12 97.8 F 69 16 94 L 09/19/17 07:30 97.8 F 69 16 134/79 94 L 09/19/17 04:00 97.8 F 64 16 122/79 95 09/19/17 00:30 98.1 F 82 14 109/69 93 L Weight Weight 196 lb 13.965 oz I&O: 09/18/17 09/19/17 09/20/17 06:59 06:59 06:59 Intake Total 1450 840 Output Total 5550 3100 Balance -4100 -2260 Result Diagrams: 09/19/17 05:15 09/19/17 05:15 Phys Exam - Physical Examination Constitutional: NAD HEENT: PERRLA, moist MMs, sclera anicteric Neck: no JVD, supple Respiratory: no wheezing, no rales, no rhonchi Cardiovascular: RRR, no significant murmur, no rub Gastrointestinal: soft, non-tender, no distention, positive bowel sounds Musculoskeletal: no edema, pulses present left leg cellulitis improving Neurological: non-focal, normal sensation, moves all 4 limbs Psychiatric: normal affect, A&O x 3 Skin: no rash, normal turgor Dx/Plan (1) Cellulitis of left lower extremity Code(s): L03.116 - CELLULITIS OF LEFT LOWER LIMB Status: Acute Comment: (2) Hypokalemia Code(s): E87.6 - HYPOKALEMIA Status: Acute (3) Knee effusion, left Code(s): M25.462 - EFFUSION, LEFT KNEE Status: Acute - Plan cont current plan of care, continue antibiotics * continue current IV antibiotics as per Dr Mathis * medication reviewed as below * symptomatic treatment * still pt is not ready for discharge given extensive left leg cellulitis. Review of Systems - Review of Systems Eyes: negative: Pain, Vision Change, Conjunctivae Inflammation, Eyelid Inflammation, Redness, Other ENT: negative: Ear Pain, Ear Discharge, Nose Pain, Nose Discharge, Nose Congestion, Mouth Pain, Mouth Swelling, Throat Pain, Throat Swelling, Other Respiratory: negative: Cough, Dry, Shortness of Breath, Hemoptysis, SOB with Excertion, Pleuritic Pain, Sputum, Wheezing Cardiovascular: negative: chest pain, palpitations, orthopnea, paroxysmal nocturnal dyspnea, edema, light headedness, other Gastrointestinal: negative: Nausea, Vomiting, Abdominal Pain, Diarrhea, Constipation, Melena, Hematochezia, Other Genitourinary: negative: Dysuria, Frequency, Incontinence, Hematuria, Retention , Other Musculoskeletal: negative: Neck Pain, Shoulder Pain, Arm Pain, Back Pain, Hand Pain, Leg Pain, Foot Pain, Other - Medications/Allergies Allergies/Adverse Reactions: Allergies Allergy/AdvReac Type Severity Reaction Status Date / Time No Known Allergies Allergy Unverified 09/13/17 17:12 Medications: Current Medications Acetaminophen (Tylenol) 650 mg PO Q6H PRN PRN Reason: Headache/Temp >101F/Mild Pain Hydrocodone Bitart/Acetaminophen ([place] 10/325) 2 tab PO Q4H PRN PRN Reason: Severe Pain (7-10) Last Admin: 09/19/17 06:45 Dose: 2 tab Hydrocodone Bitart/Acetaminophen ([place] 5/325) 1 tab PO Q4H PRN PRN Reason: Moderate Pain (4-6) Al Hydroxide/Mg Hydroxide (Maalox) 15 ml PO Q4H PRN PRN Reason: Heartburn or Indigestion Artificial Tears (Tears Naturale) 0 drop EA EYE PRN PRN PRN Reason: Dry Eyes Enoxaparin Sodium (Lovenox) 30 mg SC 0900 [facility] Last Admin: 09/19/17 08:15 Dose: 30 mg Famotidine (Pepcid) 20 mg PO BID [facility] Last Admin: 09/19/17 08:15 Dose: 20 mg Fentanyl (Sublimaze) 50 mcg SLOW IVP Q30M PRN PRN Reason: Severe breakthrough pain Guaifenesin (Robitussin Sf) 200 mg PO Q4H PRN PRN Reason: Cough Hydralazine HCl (Apresoline) 10 mg SLOW IVP Q4H PRN PRN Reason: Systolic BP > 180 Ceftriaxone Sodium 2 gm/ (Sodium Chloride) 100 mls @ 200 mls/hr IVPB Q24HR [facility] Last Admin: 09/18/17 14:04 Dose: 100 mls Ibuprofen (Motrin) 800 mg PO Q8H PRN PRN Reason: Mild Pain (1-3) Loperamide HCl (Imodium) 2 mg PO PRN PRN PRN Reason: Diarrhea/Loose Stools Loratadine (Claritin) 10 mg PO DAILYPRN PRN PRN Reason: Sinus Symptoms Magnesium Hydroxide (Milk Of Magnesium) 30 ml PO DAILYPRN PRN PRN Reason: Constipation Mineral Oil/White Petrolatum (Eucerin Cream) 0 gm TOP BIDPRN PRN PRN Reason: Dry Skin Miscellaneous Medication (Pharmacy To Dose) 1 each IVPB PRN PRN PRN Reason: Pharmacy to dose Morphine Sulfate (Morphine) 2 mg IVP Q2H PRN PRN Reason: Moderate Pain (4-6) Morphine Sulfate (Morphine) 4 mg IVP Q2H PRN PRN Reason: Severe Pain (7-10) Ondansetron HCl (Zofran) 4 mg IVP Q6H PRN PRN Reason: Nausea Ondansetron HCl (Zofran Odt) 4 mg PO Q6H PRN PRN Reason: Nausea/Vomiting Phenol (Chloraseptic [place] 180 Ml Bot) 0 ml PO PRN PRN PRN Reason: Sore Throat Polyethylene Glycol (Miralax) 17 gm PO DAILY [facility] Last Admin: 09/19/17 08:16 Dose: Not Given Promethazine HCl (Phenergan) 12.5 mg IM Q4H PRN PRN Reason: Nausea Senna (Senokot) 2 tab PO HSPRN PRN PRN Reason: Constipation Sodium Chloride (Flush - Normal Saline) 10 ml IVF PRN PRN PRN Reason: Saline Flush Sodium Chloride (Flush - Normal Saline) 10 ml IVF Q12HR [facility] Last Admin: 09/19/17 08:16 Dose: 10 ml Sodium Chloride ([place] Nasal [place] 0.65%) 0 ml EA NARE QIDPRN PRN PRN Reason: Nasal Congestion Temazepam (Restoril) 15 mg PO HSPRN PRN PRN Reason: Insomnia Tramadol HCl (Ultram) 50 mg PO Q6H PRN PRN Reason: Mild Pain (1-3) Tramadol HCl (Ultram) 100 mg PO Q6H PRN PRN Reason: Moderate Pain (4-6) Last Admin: 09/18/17 17:30 Dose: 100 mg
[2017-09-19] MEDS: cefTRIAXone\\ROCEPHIN 2 GM in Sodium Chloride 0.9% 100 ML IVPB SCH (13:22)
[2017-09-20] MEDS: HYDROcodone/Acetaminophen 10/325 mg Tablet PO PRN ×5 (03:56→20:26)
[2017-09-20 05:44] LABS: #Basophils 0.1 thou/uL (0.0-0.2); #Eosinphils 0.1 thou/uL (0.0-0.7); #Monocytes 1.4 thou/uL (0.11-0.59); #Neutrophils 10.7 thou/uL (1.40-6.50); %Basophils 0.4 % (0.0-1.0); %Eosinophils 0.9 % (0.0-10.0); %Lymphocytes 14.1 % (21.0-51.0); %Monocytes 9.6 % (0.0-10.0); Hemoglobin 13.9 g/dL (14.0-18.0); Mean Corpuscular Volume 96.9 fl (80.0-94.0); Mean Platelet Volume 6.3 fL (7.4-10.4); Platelet Count 896 thou/uL (130-400); RBC Distribution Width 12.5 % (11.5-14.5); Red Blood Cell (RBC) Count 4.47 mill/uL (4.70-6.10); White Blood Cell (WBC) Count 14.2 thou/uL (4.8-10.8)
[2017-09-20] MEDS: Famotidine 20 MG TAB PO SCH ×2 (07:54→20:27)
[2017-09-20] MEDS: Enoxaparin Sodium 30 MG/0.3 ML SYRINGE SC SCH (07:54)
[2017-09-20] MEDS: Ibuprofen 800 MG TAB PO PRN ×2 (07:55→16:23)
[2017-09-20] MEDS: Polyethylene Glycol 3350 17 GM Packet PO SCH (08:00)
--- NOTE | 2017-09-20 09:37 | PDOC.PN ---
- Subjective Encounter Start Date: 09/20/17 Encounter Start Time: 07:50 Patient seen and examined. No new complaints. No overnight events - Objective MAR Reviewed: Yes Vital Signs & Weight: Vital Signs (12 hours) Temp Pulse Resp BP BP Pulse Ox 09/20/17 08:01 97.7 F 72 18 98 09/20/17 07:40 97.7 F 72 18 129/75 98 09/20/17 04:29 98.0 F 71 14 118/67 96 09/20/17 00:07 98.2 F 80 18 137/76 96 Weight Weight 196 lb 13.965 oz I&O: 09/19/17 09/20/17 09/21/17 06:59 06:59 06:59 Intake Total 840 1600 Output Total 3100 Balance -2260 1600 Result Diagrams: 09/20/17 04:55 09/19/17 05:15 Phys Exam - Physical Examination Constitutional: NAD HEENT: PERRLA, moist MMs, sclera anicteric Neck: no JVD, supple Respiratory: no wheezing, no rales, no rhonchi Cardiovascular: RRR, no significant murmur, no rub Gastrointestinal: soft, non-tender, no distention, positive bowel sounds Musculoskeletal: no edema, pulses present left leg cellulitis improving Neurological: non-focal, normal sensation, moves all 4 limbs Psychiatric: normal affect, A&O x 3 Skin: no rash, normal turgor Dx/Plan (1) Cellulitis of left lower extremity Code(s): L03.116 - CELLULITIS OF LEFT LOWER LIMB Status: Acute Comment: (2) Hypokalemia Code(s): E87.6 - HYPOKALEMIA Status: Acute (3) Knee effusion, left Code(s): M25.462 - EFFUSION, LEFT KNEE Status: Acute - Plan cont current plan of care, continue antibiotics * continue IV rocephin as per ID * clinically improving but he will benefit from IV antibiotics for now * medication reviewed as below * symptomatic treatment * pain controlled. Review of Systems - Review of Systems ENT: negative: Ear Pain, Ear Discharge, Nose Pain, Nose Discharge, Nose Congestion, Mouth Pain, Mouth Swelling, Throat Pain, Throat Swelling, Other Respiratory: negative: Cough, Dry, Shortness of Breath, Hemoptysis, SOB with Excertion, Pleuritic Pain, Sputum, Wheezing Cardiovascular: negative: chest pain, palpitations, orthopnea, paroxysmal nocturnal dyspnea, edema, light headedness, other Gastrointestinal: negative: Nausea, Vomiting, Abdominal Pain, Diarrhea, Constipation, Melena, Hematochezia, Other Genitourinary: negative: Dysuria, Frequency, Incontinence, Hematuria, Retention , Other Musculoskeletal: negative: Neck Pain, Shoulder Pain, Arm Pain, Back Pain, Hand Pain, Leg Pain, Foot Pain, Other Skin: negative: Rash, Lesions, Isaac, Bruising, Other - Medications/Allergies Allergies/Adverse Reactions: Allergies Allergy/AdvReac Type Severity Reaction Status Date / Time No Known Allergies Allergy Unverified 09/13/17 17:12 Medications: Current Medications Acetaminophen (Tylenol) 650 mg PO Q6H PRN PRN Reason: Headache/Temp >101F/Mild Pain Hydrocodone Bitart/Acetaminophen ([place] 10/325) 2 tab PO Q4H PRN PRN Reason: Severe Pain (7-10) Last Admin: 09/20/17 07:55 Dose: 2 tab Hydrocodone Bitart/Acetaminophen ([place] 5/325) 1 tab PO Q4H PRN PRN Reason: Moderate Pain (4-6) Al Hydroxide/Mg Hydroxide (Maalox) 15 ml PO Q4H PRN PRN Reason: Heartburn or Indigestion Artificial Tears (Tears Naturale) 0 drop EA EYE PRN PRN PRN Reason: Dry Eyes Enoxaparin Sodium (Lovenox) 30 mg SC 0900 [facility] Last Admin: 09/20/17 07:54 Dose: 30 mg Famotidine (Pepcid) 20 mg PO BID [facility] Last Admin: 09/20/17 07:54 Dose: 20 mg Fentanyl (Sublimaze) 50 mcg SLOW IVP Q30M PRN PRN Reason: Severe breakthrough pain Guaifenesin (Robitussin Sf) 200 mg PO Q4H PRN PRN Reason: Cough Hydralazine HCl (Apresoline) 10 mg SLOW IVP Q4H PRN PRN Reason: Systolic BP > 180 Ceftriaxone Sodium 2 gm/ (Sodium Chloride) 100 mls @ 200 mls/hr IVPB Q24HR [facility] Last Admin: 09/19/17 13:22 Dose: 100 mls Ibuprofen (Motrin) 800 mg PO Q8H PRN PRN Reason: Mild Pain (1-3) Last Admin: 09/20/17 07:55 Dose: 800 mg Loperamide HCl (Imodium) 2 mg PO PRN PRN PRN Reason: Diarrhea/Loose Stools Loratadine (Claritin) 10 mg PO DAILYPRN PRN PRN Reason: Sinus Symptoms Magnesium Hydroxide (Milk Of Magnesium) 30 ml PO DAILYPRN PRN PRN Reason: Constipation Mineral Oil/White Petrolatum (Eucerin Cream) 0 gm TOP BIDPRN PRN PRN Reason: Dry Skin Morphine Sulfate (Morphine) 2 mg IVP Q2H PRN PRN Reason: Moderate Pain (4-6) Morphine Sulfate (Morphine) 4 mg IVP Q2H PRN PRN Reason: Severe Pain (7-10) Ondansetron HCl (Zofran) 4 mg IVP Q6H PRN PRN Reason: Nausea Ondansetron HCl (Zofran Odt) 4 mg PO Q6H PRN PRN Reason: Nausea/Vomiting Phenol (Chloraseptic [place] 180 Ml Bot) 0 ml PO PRN PRN PRN Reason: Sore Throat Polyethylene Glycol (Miralax) 17 gm PO DAILY [facility] Last Admin: 09/20/17 08:00 Dose: Not Given Promethazine HCl (Phenergan) 12.5 mg IM Q4H PRN PRN Reason: Nausea Senna (Senokot) 2 tab PO HSPRN PRN PRN Reason: Constipation Sodium Chloride (Flush - Normal Saline) 10 ml IVF PRN PRN PRN Reason: Saline Flush Sodium Chloride (Flush - Normal Saline) 10 ml IVF Q12HR [facility] Last Admin: 09/20/17 07:55 Dose: 10 ml Sodium Chloride ([place] Nasal [place] 0.65%) 0 ml EA NARE QIDPRN PRN PRN Reason: Nasal Congestion Temazepam (Restoril) 15 mg PO HSPRN PRN PRN Reason: Insomnia Tramadol HCl (Ultram) 50 mg PO Q6H PRN PRN Reason: Mild Pain (1-3) Tramadol HCl (Ultram) 100 mg PO Q6H PRN PRN Reason: Moderate Pain (4-6) Last Admin: 09/18/17 17:30 Dose: 100 mg
[2017-09-20] MEDS: cefTRIAXone\\ROCEPHIN 2 GM in Sodium Chloride 0.9% 100 ML IVPB SCH (13:17)
--- NOTE | 2017-09-20 17:55 | PRG ---
DATE OF SERVICE: 09/20/2017 SUBJECTIVE: He got up today and more active and this afternoon, the pain has intensified in the left lower extremity. He did also had difficulty accessing his veins. OBJECTIVE: VITAL SIGNS: Normal. LUNGS: Clear. HEART: S1, S2, regular rate. ABDOMEN: Soft. EXTREMITIES: Left leg bit more swollen to probably from his upright position for longer period of ti me today without any compression stockings. All the areas of previously noted blistering dried up an d peeling off at this time. White cell count is 14.2, hemoglobin 13, platelets 896. Sodium 136, cre atinine 0.67. ASSESSMENT AND DISCUSSION: Extensive cellulitis left lower extremity with probably secondary to beta hemolytic streptococcus. There is fluid in these dermal tissues in subcutaneous area. There is one area where the facial area may be involved and there is some subfascial fluid, but this is small pipo ce. We will continue IV antimicrobial therapy currently suggested PICC line placement and he is hesi tant about agreeing to that at this point in time. If continues to have pain, I may have to do a lit tle bit small incision in one of those areas to see the nature of the fluid identified on MRI.
[2017-09-21] MEDS: HYDROcodone/Acetaminophen 10/325 mg Tablet PO PRN ×5 (00:48→20:56)
[2017-09-21] MEDS: Ibuprofen 800 MG TAB PO PRN ×3 (00:51→17:16)
[2017-09-21 05:58] LABS: #Basophils 0.1 thou/uL (0.0-0.2); #Eosinphils 0.2 thou/uL (0.0-0.7); #Lymphocytes 2.3 thou/uL (1.20-3.40); #Monocytes 1.5 thou/uL (0.11-0.59); #Neutrophils 8.4 thou/uL (1.40-6.50); %Basophils 0.6 % (0.0-1.0); %Eosinophils 1.8 % (0.0-10.0); %Lymphocytes 18.7 % (21.0-51.0); %Monocytes 11.7 % (0.0-10.0); %Neutrophils 67.2 % (42.0-75.0); Hemoglobin 12.9 g/dL (14.0-18.0); Mean Corpuscular HGB CONC 31.5 g/dL (32.0-36.0); Mean Corpuscular Hemoglobin 30.3 pg (27.0-31.0); Mean Corpuscular Volume 96.3 fl (80.0-94.0); Mean Platelet Volume 6.4 fL (7.4-10.4); Platelet Count 882 thou/uL (130-400); RBC Distribution Width 12.6 % (11.5-14.5); Red Blood Cell (RBC) Count 4.24 mill/uL (4.70-6.10); White Blood Cell (WBC) Count 12.5 thou/uL (4.8-10.8)
[2017-09-21] MEDS: Polyethylene Glycol 3350 17 GM Packet PO SCH (08:09)
[2017-09-21] MEDS: Enoxaparin Sodium 30 MG/0.3 ML SYRINGE SC SCH (08:10)
[2017-09-21] MEDS: Famotidine 20 MG TAB PO SCH ×2 (08:11→20:58)
[2017-09-21] MEDS: cefTRIAXone\\ROCEPHIN 2 GM in Sodium Chloride 0.9% 100 ML IVPB SCH (13:43)
--- NOTE | 2017-09-21 14:49 | PDOC.PN ---
- Subjective Encounter Start Date: 09/21/17 Encounter Start Time: 14:47 CC: Leg pain sub: pt still c/o leg pain - Objective Vital Signs & Weight: Vital Signs (12 hours) Temp Pulse Resp BP Pulse Ox 09/21/17 11:00 98.1 F 82 18 121/73 95 09/21/17 08:10 97.6 F 65 20 97 09/21/17 07:20 97.6 F 65 20 112/70 97 09/21/17 04:00 97.6 F 70 20 132/80 97 Weight Weight 196 lb 13.965 oz I&O: 09/20/17 09/21/17 09/22/17 06:59 06:59 06:59 Intake Total 1600 1800 Balance 1600 1800 Result Diagrams: 09/21/17 05:16 09/19/17 05:15 Dx/Plan - Plan Constitutional: NAD HEENT: PERRLA, moist MMs, sclera anicteric Neck: no JVD, supple Respiratory: no wheezing, no rales, no rhonchi Cardiovascular: RRR, no significant murmur, no rub Gastrointestinal: soft, non-tender, no distention, positive bowel sounds Musculoskeletal: no edema, pulses present left leg cellulitis improving, positive erythema extrending fome left leg all the way up to left thigh Neurological: non-focal, normal sensation, moves all 4 limbs Psychiatric: normal affect, A&O x 3 Skin: no rash, normal turgor Dx/Plan (1) Cellulitis of left lower extremity Code(s): L03.116 - CELLULITIS OF LEFT LOWER LIMB Status: Acute Comment: (2) Hypokalemia Code(s): E87.6 - HYPOKALEMIA Status: Acute (3) Knee effusion, left Code(s): M25.462 - EFFUSION, LEFT KNEE Status: Acute - Plan cont current plan of care, continue antibiotics wbc count improving Continue rocephin 2gms ib q24hrs Appreciate ID input pn pain meds. Monitor respiratory status closely case d/w pt & RN
[2017-09-22] MEDS: HYDROcodone/Acetaminophen 10/325 mg Tablet PO PRN ×6 (01:51→21:45)
[2017-09-22] MEDS: Ibuprofen 800 MG TAB PO PRN ×3 (01:52→17:38)
[2017-09-22] MEDS: Enoxaparin Sodium 30 MG/0.3 ML SYRINGE SC SCH (08:44)
[2017-09-22] MEDS: Polyethylene Glycol 3350 17 GM Packet PO SCH (08:44)
[2017-09-22] MEDS: Famotidine 20 MG TAB PO SCH ×2 (08:44→21:02)
--- NOTE | 2017-09-22 13:37 | PDOC.PN ---
- Subjective Encounter Start Date: 09/22/17 Encounter Start Time: 13:35 Subjective: feels better.refusing PICC -: leg swelling and redness better - Objective MAR Reviewed: Yes Vital Signs & Weight: Vital Signs (12 hours) Temp Pulse Resp BP Pulse Ox 09/22/17 12:30 97.7 F 93 18 120/85 95 09/22/17 08:20 97.8 F 82 16 96 09/22/17 07:35 97.8 F 82 16 128/81 96 09/22/17 06:18 97.7 F 78 18 116/68 97 Weight Weight 196 lb 13.965 oz I&O: 09/21/17 09/22/17 09/23/17 06:59 06:59 06:59 Intake Total 1800 600 Balance 1800 600 Result Diagrams: 09/21/17 05:16 09/19/17 05:15 Additional Labs: Microbiology 09/13/17 Unknown Knee aspirate - Pending Body Fluid Culture - Final 09/13/17 15:36 Venous blood - Left Arm Blood Culture - Final NO GROWTH IN 5 DAYS 09/13/17 15:34 Venous blood - Right Arm Blood Culture - Final NO GROWTH IN 5 DAYS Laboratory Tests 09/14/17 15:49 Hepatitis C Antibody Non-Reactive HIV 1&2 Antigen & Ab Non-Reactive Phys Exam - Physical Examination Constitutional: NAD HEENT: PERRLA, moist MMs, sclera anicteric, oral pharynx no lesions Neck: no nodes, no JVD, supple, full ROM Respiratory: no wheezing, no rales, no rhonchi, clear to auscultation bilateral Cardiovascular: RRR, no significant murmur Gastrointestinal: soft, non-tender, no distention, positive bowel sounds Musculoskeletal: pulses present LLE erythema,scaling,peeling ok skin w edema lateral side Neurological: non-focal, normal sensation, moves all 4 limbs Psychiatric: normal affect, A&O x 3 Skin: no rash Dx/Plan (1) Cellulitis of left lower extremity Code(s): L03.116 - CELLULITIS OF LEFT LOWER LIMB Status: Acute Comment: (2) Hypokalemia Code(s): E87.6 - HYPOKALEMIA Status: Resolved (3) Knee effusion, left Code(s): M25.462 - EFFUSION, LEFT KNEE Status: Acute Comment: s/p arthrocentesis - Plan DVT proph w/SCDs Cx remain negative.cont empiric ABx.Pt refuses PICC for DC -: will defer to ID for ABx choice for disharge. -: potassium [email or web address] stable * . Review of Systems - Review of Systems Constitutional: negative: fever, chills, sweats, weakness, malaise, other ENT: negative: Ear Pain, Ear Discharge, Nose Pain, Nose Discharge, Nose Congestion, Mouth Pain, Mouth Swelling, Throat Pain, Throat Swelling, Other Respiratory: negative: Cough, Dry, Shortness of Breath, Hemoptysis, SOB with Excertion, Pleuritic Pain, Sputum, Wheezing Cardiovascular: negative: chest pain, palpitations, orthopnea, paroxysmal nocturnal dyspnea, edema, light headedness, other Gastrointestinal: negative: Nausea, Vomiting, Abdominal Pain, Diarrhea, Constipation, Melena, Hematochezia, Other Genitourinary: negative: Dysuria, Frequency, Incontinence, Hematuria, Retention , Other Musculoskeletal: negative: Neck Pain, Shoulder Pain, Arm Pain, Back Pain, Hand Pain, Leg Pain, Foot Pain, Other Neurological: negative: Weakness, Numbness, Incoordination, Change in Speech, Confusion, Seizures, Other - Medications/Allergies Allergies/Adverse Reactions: Allergies Allergy/AdvReac Type Severity Reaction Status Date / Time No Known Allergies Allergy Unverified 09/13/17 17:12 Medications: Current Medications Acetaminophen (Tylenol) 650 mg PO Q6H PRN PRN Reason: Headache/Temp >101F/Mild Pain Hydrocodone Bitart/Acetaminophen ([place] 10/325) 2 tab PO Q4H PRN PRN Reason: Severe Pain (7-10) Last Admin: 09/22/17 11:05 Dose: 2 tab Hydrocodone Bitart/Acetaminophen ([place] 5/325) 1 tab PO Q4H PRN PRN Reason: Moderate Pain (4-6) Al Hydroxide/Mg Hydroxide (Maalox) 15 ml PO Q4H PRN PRN Reason: Heartburn or Indigestion Artificial Tears (Tears Naturale) 0 drop EA EYE PRN PRN PRN Reason: Dry Eyes Enoxaparin Sodium (Lovenox) 30 mg SC 0900 [facility] Last Admin: 09/22/17 08:44 Dose: 30 mg Famotidine (Pepcid) 20 mg PO BID [facility] Last Admin: 09/22/17 08:44 Dose: 20 mg Fentanyl (Sublimaze) 50 mcg SLOW IVP Q30M PRN PRN Reason: Severe breakthrough pain Guaifenesin (Robitussin Sf) 200 mg PO Q4H PRN PRN Reason: Cough Hydralazine HCl (Apresoline) 10 mg SLOW IVP Q4H PRN PRN Reason: Systolic BP > 180 Ceftriaxone Sodium 2 gm/ (Sodium Chloride) 100 mls @ 200 mls/hr IVPB Q24HR [facility] Last Admin: 09/21/17 13:43 Dose: 100 mls Ibuprofen (Motrin) 800 mg PO Q8H PRN PRN Reason: Mild Pain (1-3) Last Admin: 09/22/17 08:48 Dose: 800 mg Loperamide HCl (Imodium) 2 mg PO PRN PRN PRN Reason: Diarrhea/Loose Stools Loratadine (Claritin) 10 mg PO DAILYPRN PRN PRN Reason: Sinus Symptoms Magnesium Hydroxide (Milk Of Magnesium) 30 ml PO DAILYPRN PRN PRN Reason: Constipation Mineral Oil/White Petrolatum (Eucerin Cream) 0 gm TOP BIDPRN PRN PRN Reason: Dry Skin Morphine Sulfate (Morphine) 2 mg IVP Q2H PRN PRN Reason: Moderate Pain (4-6) Morphine Sulfate (Morphine) 4 mg IVP Q2H PRN PRN Reason: Severe Pain (7-10) Ondansetron HCl (Zofran) 4 mg IVP Q6H PRN PRN Reason: Nausea Ondansetron HCl (Zofran Odt) 4 mg PO Q6H PRN PRN Reason: Nausea/Vomiting Phenol (Chloraseptic [place] 180 Ml Bot) 0 ml PO PRN PRN PRN Reason: Sore Throat Polyethylene Glycol (Miralax) 17 gm PO DAILY [facility] Last Admin: 09/22/17 08:44 Dose: Not Given Promethazine HCl (Phenergan) 12.5 mg IM Q4H PRN PRN Reason: Nausea Senna (Senokot) 2 tab PO HSPRN PRN PRN Reason: Constipation Sodium Chloride (Flush - Normal Saline) 10 ml IVF PRN PRN PRN Reason: Saline Flush Sodium Chloride (Flush - Normal Saline) 10 ml IVF Q12HR [facility] Last Admin: 09/22/17 08:44 Dose: 10 ml Sodium Chloride ([place] Nasal [place] 0.65%) 0 ml EA NARE QIDPRN PRN PRN Reason: Nasal Congestion Temazepam (Restoril) 15 mg PO HSPRN PRN PRN Reason: Insomnia Tramadol HCl (Ultram) 50 mg PO Q6H PRN PRN Reason: Mild Pain (1-3) Tramadol HCl (Ultram) 100 mg PO Q6H PRN PRN Reason: Moderate Pain (4-6) Last Admin: 09/18/17 17:30 Dose: 100 mg
[2017-09-22] MEDS: cefTRIAXone\\ROCEPHIN 2 GM in Sodium Chloride 0.9% 100 ML IVPB SCH (14:28)
[2017-09-23] MEDS: HYDROcodone/Acetaminophen 10/325 mg Tablet PO PRN ×6 (01:45→21:59)
[2017-09-23] MEDS: Ibuprofen 800 MG TAB PO PRN ×3 (01:45→18:25)
[2017-09-23 05:14] LABS: #Basophils 0.1 thou/uL (0.0-0.2); #Eosinphils 0.2 thou/uL (0.0-0.7); #Lymphocytes 2.3 thou/uL (1.20-3.40); #Monocytes 1.4 thou/uL (0.11-0.59); #Neutrophils 5.4 thou/uL (1.40-6.50); %Basophils 1.1 % (0.0-1.0); %Eosinophils 1.7 % (0.0-10.0); %Lymphocytes 24.9 % (21.0-51.0); %Monocytes 14.7 % (0.0-10.0); %Neutrophils 57.6 % (42.0-75.0); Hemoglobin 12.3 g/dL (14.0-18.0); Mean Corpuscular Hemoglobin 31.5 pg (27.0-31.0); Mean Corpuscular Volume 95.4 fl (80.0-94.0); Mean Platelet Volume 6.4 fL (7.4-10.4); Platelet Count 896 thou/uL (130-400); RBC Distribution Width 12.3 % (11.5-14.5); Red Blood Cell (RBC) Count 3.91 mill/uL (4.70-6.10); White Blood Cell (WBC) Count 9.3 thou/uL (4.8-10.8)
[2017-09-23 05:29] LABS: Anion Gap 11 mmol/L (10-20); BUN (Urea Nitrogen) 16 mg/dL (8.9-20.6); Calc. Creatinine Clearance 170 mL/min (70-130); Calcium 9.3 mg/dL (7.8-10.44); Carbon Dioxide 27 mmol/L (22-29); Chloride 102 mmol/L (98-107); Estimated GFR-MDRD Greater than 90; Glucose 92 mg/dL (70-105); Potassium 4.4 mmol/L (3.5-5.1); Sodium 136 mmol/L (136-145)
[2017-09-23] MEDS: Enoxaparin Sodium 30 MG/0.3 ML SYRINGE SC SCH (09:07)
[2017-09-23] MEDS: Famotidine 20 MG TAB PO SCH ×2 (09:07→22:00)
[2017-09-23] MEDS: Polyethylene Glycol 3350 17 GM Packet PO SCH (09:08)
--- NOTE | 2017-09-23 13:05 | PDOC.PN ---
- Subjective Encounter Start Date: 09/23/17 Encounter Start Time: 13:03 Subjective: feels better. ready to get PICC if he needs to -: redness and swelling about the same in leg - Objective MAR Reviewed: Yes Vital Signs & Weight: Vital Signs (12 hours) Temp Pulse Resp BP Pulse Ox 09/23/17 11:46 98.0 F 69 16 123/79 99 09/23/17 08:10 97.6 F 64 16 97 09/23/17 08:09 97.6 F 64 16 109/72 97 09/23/17 03:53 97.7 F 77 20 105/60 98 Weight Weight 196 lb 13.965 oz I&O: 09/22/17 09/23/17 09/24/17 06:59 06:59 06:59 Intake Total 600 1070 Output Total 2175 Balance 600 -1105 Result Diagrams: 09/23/17 04:49 09/23/17 04:49 Additional Labs: Microbiology 09/13/17 Unknown Knee aspirate - Pending Body Fluid Culture - Final 09/13/17 15:36 Venous blood - Left Arm Blood Culture - Final NO GROWTH IN 5 DAYS 09/13/17 15:34 Venous blood - Right Arm Blood Culture - Final NO GROWTH IN 5 DAYS Phys Exam - Physical Examination Constitutional: NAD HEENT: PERRLA, moist MMs, sclera anicteric, TM's clear, oral pharynx no lesions Neck: no nodes, no JVD, supple, full ROM Respiratory: no wheezing, no rales, no rhonchi, clear to auscultation bilateral Cardiovascular: RRR, no significant murmur Gastrointestinal: soft, non-tender, no distention, positive bowel sounds Musculoskeletal: pulses present, edema present slightly improved erythema in Left leg Neurological: non-focal, normal sensation, moves all 4 limbs Dx/Plan (1) Cellulitis of left lower extremity Code(s): L03.116 - CELLULITIS OF LEFT LOWER LIMB Status: Acute Comment: (2) Knee effusion, left Code(s): M25.462 - EFFUSION, LEFT KNEE Status: Acute Comment: s/p arthrocentesis (3) Hypokalemia Code(s): E87.6 - HYPOKALEMIA Status: Resolved - Plan continue antibiotics, out of bed/ambulate may need IV ABx.awaiting final ID recs.all Cx remain -ve -: encourage ambulation.minimize pain meds. -: ortho following * . Review of Systems - Review of Systems Constitutional: negative: fever, chills, sweats, weakness, malaise, other Eyes: negative: Pain, Vision Change, Conjunctivae Inflammation, Eyelid Inflammation, Redness, Other Respiratory: negative: Cough, Dry, Shortness of Breath, Hemoptysis, SOB with Excertion, Pleuritic Pain, Sputum, Wheezing Cardiovascular: negative: chest pain, palpitations, orthopnea, paroxysmal nocturnal dyspnea, edema, light headedness, other Gastrointestinal: negative: Nausea, Vomiting, Abdominal Pain, Diarrhea, Constipation, Melena, Hematochezia, Other Genitourinary: negative: Dysuria, Frequency, Incontinence, Hematuria, Retention , Other Musculoskeletal: negative: Neck Pain, Shoulder Pain, Arm Pain, Back Pain, Hand Pain, Leg Pain, Foot Pain, Other Skin: negative: Rash, Lesions, Isaac, Bruising, Other Neurological: negative: Weakness, Numbness, Incoordination, Change in Speech, Confusion, Seizures, Other - Medications/Allergies Allergies/Adverse Reactions: Allergies Allergy/AdvReac Type Severity Reaction Status Date / Time No Known Allergies Allergy Unverified 09/13/17 17:12 Medications: Current Medications Acetaminophen (Tylenol) 650 mg PO Q6H PRN PRN Reason: Headache/Temp >101F/Mild Pain Hydrocodone Bitart/Acetaminophen ([place] 10/325) 2 tab PO Q4H PRN PRN Reason: Severe Pain (7-10) Last Admin: 09/23/17 09:59 Dose: 2 tab Hydrocodone Bitart/Acetaminophen ([place] 5/325) 1 tab PO Q4H PRN PRN Reason: Moderate Pain (4-6) Al Hydroxide/Mg Hydroxide (Maalox) 15 ml PO Q4H PRN PRN Reason: Heartburn or Indigestion Artificial Tears (Tears Naturale) 0 drop EA EYE PRN PRN PRN Reason: Dry Eyes Enoxaparin Sodium (Lovenox) 30 mg SC 0900 [facility] Last Admin: 09/23/17 09:07 Dose: 30 mg Famotidine (Pepcid) 20 mg PO BID [facility] Last Admin: 09/23/17 09:07 Dose: 20 mg Guaifenesin (Robitussin Sf) 200 mg PO Q4H PRN PRN Reason: Cough Hydralazine HCl (Apresoline) 10 mg SLOW IVP Q4H PRN PRN Reason: Systolic BP > 180 Ceftriaxone Sodium 2 gm/ (Sodium Chloride) 100 mls @ 200 mls/hr IVPB Q24HR [facility] Last Admin: 09/22/17 14:28 Dose: 100 mls Ibuprofen (Motrin) 800 mg PO Q8H PRN PRN Reason: Mild Pain (1-3) Last Admin: 09/23/17 09:59 Dose: 800 mg Loperamide HCl (Imodium) 2 mg PO PRN PRN PRN Reason: Diarrhea/Loose Stools Loratadine (Claritin) 10 mg PO DAILYPRN PRN PRN Reason: Sinus Symptoms Magnesium Hydroxide (Milk Of Magnesium) 30 ml PO DAILYPRN PRN PRN Reason: Constipation Mineral Oil/White Petrolatum (Eucerin Cream) 0 gm TOP BIDPRN PRN PRN Reason: Dry Skin Morphine Sulfate (Morphine) 2 mg IVP Q2H PRN PRN Reason: Moderate Pain (4-6) Ondansetron HCl (Zofran) 4 mg IVP Q6H PRN PRN Reason: Nausea Ondansetron HCl (Zofran Odt) 4 mg PO Q6H PRN PRN Reason: Nausea/Vomiting Phenol (Chloraseptic [place] 180 Ml Bot) 0 ml PO PRN PRN PRN Reason: Sore Throat Polyethylene Glycol (Miralax) 17 gm PO DAILY [facility] Last Admin: 09/23/17 09:08 Dose: Not Given Promethazine HCl (Phenergan) 12.5 mg IM Q4H PRN PRN Reason: Nausea Senna (Senokot) 2 tab PO HSPRN PRN PRN Reason: Constipation Sodium Chloride (Flush - Normal Saline) 10 ml IVF PRN PRN PRN Reason: Saline Flush Sodium Chloride (Flush - Normal Saline) 10 ml IVF Q12HR [facility] Last Admin: 09/23/17 09:07 Dose: 10 ml Sodium Chloride ([place] Nasal [place] 0.65%) 0 ml EA NARE QIDPRN PRN PRN Reason: Nasal Congestion Temazepam (Restoril) 15 mg PO HSPRN PRN PRN Reason: Insomnia Tramadol HCl (Ultram) 50 mg PO Q6H PRN PRN Reason: Mild Pain (1-3) Tramadol HCl (Ultram) 100 mg PO Q6H PRN PRN Reason: Moderate Pain (4-6) Last Admin: 09/18/17 17:30 Dose: 100 mg
[2017-09-23] MEDS: cefTRIAXone\\ROCEPHIN 2 GM in Sodium Chloride 0.9% 100 ML IVPB SCH (14:22)
--- NOTE | 2017-09-23 14:47 | PRG ---
DATE OF SERVICE: 09/23/2017 SUBJECTIVE: The patient is feeling better, less pain more mobility. Still has quite a bit of sorene ss when he gets up and starts walking around. No respiratory symptoms or abdominal pain, no diarrhea . He has been afebrile. HEENT EXAMINATION: VITAL SIGNS: Within normal limits. HEENT: Normal. LUNGS: Clear. HEART: S1, S2, regular rate. ABDOMEN: Soft. MUSCULOSKELETAL: Left lower extremity with marked improvement. Finally, all the areas with marked r eduction in erythema and swelling. LABORATORY DATA: White cell count is 9.3, hemoglobin 12, platelets 896, 57% neutrophils. Chemistry is normal. All the microbiology samples are negative. ASSESSMENT AND DISCUSSION: Cellulitis of left lower extremity with some extensive areas of marked im provement over the past 48 hours finally. Beta hemolytic strep is the most likely culprit here and n ow we will place PICC line and continue Rocephin for another 2 weeks and then transition to oral Kefl ex in view of the severity of illness.
[2017-09-24] MEDS: Ibuprofen 800 MG TAB PO PRN ×3 (02:31→18:39)
[2017-09-24] MEDS: HYDROcodone/Acetaminophen 10/325 mg Tablet PO PRN ×6 (02:31→22:14)
[2017-09-24] MEDS: Polyethylene Glycol 3350 17 GM Packet PO SCH (07:54)
[2017-09-24] MEDS: Enoxaparin Sodium 30 MG/0.3 ML SYRINGE SC SCH (07:56)
[2017-09-24] MEDS: Famotidine 20 MG TAB PO SCH ×2 (07:56→22:19)
--- NOTE | 2017-09-24 13:08 | PDOC.PN ---
- Subjective Encounter Start Date: 09/24/17 Encounter Start Time: 13:06 Subjective: feels well.no new complaints -: leg pain and swelling better - Objective MAR Reviewed: Yes Vital Signs & Weight: Vital Signs (12 hours) Temp Pulse Resp BP Pulse Ox 09/24/17 12:00 98.2 F 77 16 127/75 97 09/24/17 08:01 97.5 F L 66 18 98 09/24/17 08:00 97.5 F L 66 18 110/68 98 09/24/17 04:00 98.2 F 72 16 115/78 98 Weight Admit Weight 196 lb 13.965 oz Weight 196 lb 13.965 oz I&O: 09/23/17 09/24/17 09/25/17 06:59 06:59 06:59 Intake Total 1070 100 720 Output Total 2175 950 Balance -1105 100 -230 Result Diagrams: 09/23/17 04:49 09/23/17 04:49 Additional Labs: Microbiology 09/13/17 Unknown Knee aspirate - Pending Body Fluid Culture - Final 09/13/17 15:36 Venous blood - Left Arm Blood Culture - Final NO GROWTH IN 5 DAYS 09/13/17 15:34 Venous blood - Right Arm Blood Culture - Final NO GROWTH IN 5 DAYS Phys Exam - Physical Examination Constitutional: NAD HEENT: PERRLA, moist MMs, sclera anicteric, oral pharynx no lesions Neck: no nodes, no JVD, supple, full ROM Respiratory: no wheezing, no rales, no rhonchi, clear to auscultation bilateral Cardiovascular: RRR, no significant murmur, no rub, gallop Gastrointestinal: soft, non-tender, no distention, positive bowel sounds Musculoskeletal: no edema, pulses present extensive erythema of left leg,receeding though w scabs Neurological: non-focal, normal sensation, moves all 4 limbs Psychiatric: normal affect, A&O x 3 Dx/Plan (1) Cellulitis of left lower extremity Code(s): L03.116 - CELLULITIS OF LEFT LOWER LIMB Status: Acute Comment: (2) Knee effusion, left Code(s): M25.462 - EFFUSION, LEFT KNEE Status: Acute Comment: s/p arthrocentesis (3) Hypokalemia Code(s): E87.6 - HYPOKALEMIA Status: Resolved - Plan continue antibiotics, out of bed/ambulate PICC to be placed. protracted iv ABx needed per ID -: CM assisting w outpt arrangment for same -: cont rocephin for now.Cx remain negative -: hemodynamically stable. no surgical indication. * . Review of Systems - Review of Systems Constitutional: negative: fever, chills, sweats, weakness, malaise, other ENT: negative: Ear Pain, Ear Discharge, Nose Pain, Nose Discharge, Nose Congestion, Mouth Pain, Mouth Swelling, Throat Pain, Throat Swelling, Other Cardiovascular: negative: chest pain, palpitations, orthopnea, paroxysmal nocturnal dyspnea, edema, light headedness, other Gastrointestinal: negative: Nausea, Vomiting, Abdominal Pain, Diarrhea, Constipation, Melena, Hematochezia, Other Genitourinary: negative: Dysuria, Frequency, Incontinence, Hematuria, Retention , Other Musculoskeletal: negative: Neck Pain, Shoulder Pain, Arm Pain, Back Pain, Hand Pain, Leg Pain, Foot Pain, Other Skin: Rash - Medications/Allergies Allergies/Adverse Reactions: Allergies Allergy/AdvReac Type Severity Reaction Status Date / Time No Known Allergies Allergy Unverified 09/13/17 17:12 Medications: Current Medications Acetaminophen (Tylenol) 650 mg PO Q6H PRN PRN Reason: Headache/Temp >101F/Mild Pain Hydrocodone Bitart/Acetaminophen ([place] 10/325) 2 tab PO Q4H PRN PRN Reason: Severe Pain (7-10) Last Admin: 09/24/17 10:39 Dose: 2 tab Hydrocodone Bitart/Acetaminophen ([place] 5/325) 1 tab PO Q4H PRN PRN Reason: Moderate Pain (4-6) Al Hydroxide/Mg Hydroxide (Maalox) 15 ml PO Q4H PRN PRN Reason: Heartburn or Indigestion Artificial Tears (Tears Naturale) 0 drop EA EYE PRN PRN PRN Reason: Dry Eyes Enoxaparin Sodium (Lovenox) 30 mg SC 0900 [facility] Last Admin: 09/24/17 07:56 Dose: 30 mg Famotidine (Pepcid) 20 mg PO BID [facility] Last Admin: 09/24/17 07:56 Dose: 20 mg Guaifenesin (Robitussin Sf) 200 mg PO Q4H PRN PRN Reason: Cough Hydralazine HCl (Apresoline) 10 mg SLOW IVP Q4H PRN PRN Reason: Systolic BP > 180 Ceftriaxone Sodium 2 gm/ (Sodium Chloride) 100 mls @ 200 mls/hr IVPB Q24HR [facility] Last Admin: 09/23/17 14:22 Dose: 100 mls Ibuprofen (Motrin) 800 mg PO Q8H PRN PRN Reason: Mild Pain (1-3) Last Admin: 09/24/17 10:39 Dose: 800 mg Loperamide HCl (Imodium) 2 mg PO PRN PRN PRN Reason: Diarrhea/Loose Stools Loratadine (Claritin) 10 mg PO DAILYPRN PRN PRN Reason: Sinus Symptoms Magnesium Hydroxide (Milk Of Magnesium) 30 ml PO DAILYPRN PRN PRN Reason: Constipation Mineral Oil/White Petrolatum (Eucerin Cream) 0 gm TOP BIDPRN PRN PRN Reason: Dry Skin Morphine Sulfate (Morphine) 2 mg IVP Q2H PRN PRN Reason: Moderate Pain (4-6) Ondansetron HCl (Zofran) 4 mg IVP Q6H PRN PRN Reason: Nausea Ondansetron HCl (Zofran Odt) 4 mg PO Q6H PRN PRN Reason: Nausea/Vomiting Phenol (Chloraseptic [place] 180 Ml Bot) 0 ml PO PRN PRN PRN Reason: Sore Throat Polyethylene Glycol (Miralax) 17 gm PO DAILY [facility] Last Admin: 09/24/17 07:54 Dose: Not Given Promethazine HCl (Phenergan) 12.5 mg IM Q4H PRN PRN Reason: Nausea Senna (Senokot) 2 tab PO HSPRN PRN PRN Reason: Constipation Sodium Chloride (Flush - Normal Saline) 10 ml IVF PRN PRN PRN Reason: Saline Flush Sodium Chloride (Flush - Normal Saline) 10 ml IVF Q12HR [facility] Last Admin: 09/24/17 07:59 Dose: 10 ml Sodium Chloride ([place] Nasal [place] 0.65%) 0 ml EA NARE QIDPRN PRN PRN Reason: Nasal Congestion Temazepam (Restoril) 15 mg PO HSPRN PRN PRN Reason: Insomnia Tramadol HCl (Ultram) 50 mg PO Q6H PRN PRN Reason: Mild Pain (1-3) Tramadol HCl (Ultram) 100 mg PO Q6H PRN PRN Reason: Moderate Pain (4-6) Last Admin: 09/18/17 17:30 Dose: 100 mg
[2017-09-24] MEDS: cefTRIAXone\\ROCEPHIN 2 GM in Sodium Chloride 0.9% 100 ML IVPB SCH (14:53)
--- NOTE | 2017-09-24 17:10 | SPC ---
LEFT UPPER EXTREMITY PICC LINE ULTRASOUND AND FLUOROSCOPIC GUIDANCE: PROCEDURE: After informed consent had been obtained, the patient was placed on the interventional suite table in a supine position. The left arm was prepped and draped in a standard sterile fashion. Topical anes thesia was achieved utilizing 1% Lidocaine and sodium bicarbonate. Under real-time sonography, the b asilic vein of the left upper extremity was accessed with a small caliber needle with venous flash pr esent at the needle hub. A guidewire was then advanced in to the needle, and under real-time fluoros copy, the guidewire was advanced to the level of the inferior vena cava to confirm appropriate venous placement. A small skin incision was made and the needle was removed. Over the guidewire, a single lumen PICC line was cut to 41 cm. The PICC line was advanced under real-time fluoroscopy over the g uidewire to the level of the cavoatrial junction. The guidewire and peelaway sheath were then remove d. PICC line flushed and aspirated appropriately and was secured to the left upper extremity. There were no procedural complications. Dose: 36 mGy*cm^2, 0 minutes intermittent fluoroscopy. IMPRESSION: Technically successful ultrasound and fluoroscopic-guided left PICC line placement, as above. POS: CARL
[2017-09-25] MEDS: HYDROcodone/Acetaminophen 10/325 mg Tablet PO PRN ×4 (02:57→15:37)
[2017-09-25] MEDS: Ibuprofen 800 MG TAB PO PRN ×2 (02:59→11:27)
[2017-09-25] MEDS: Enoxaparin Sodium 30 MG/0.3 ML SYRINGE SC SCH (08:02)
[2017-09-25] MEDS: Famotidine 20 MG TAB PO SCH (08:02)
[2017-09-25] MEDS: Polyethylene Glycol 3350 17 GM Packet PO SCH (08:05)
[2017-09-25 12:21] VITALS: BP 150/78; TEMP 98.2
--- NOTE | 2017-09-25 12:28 | PDOC.PN ---
- Subjective Encounter Start Date: 09/25/17 Encounter Start Time: 12:26 Subjective: feels better. no new complaints.leg getting better - Objective MAR Reviewed: Yes Vital Signs & Weight: Vital Signs (12 hours) Temp Pulse Resp BP BP Pulse Ox 09/25/17 12:00 98.2 F 77 14 150/78 H 92 L 09/25/17 08:19 97.8 F 64 14 114/71 97 09/25/17 08:05 97.8 F 64 14 97 09/25/17 05:22 97.9 F 75 18 113/79 97 Weight Admit Weight 196 lb 13.965 oz Weight 196 lb 13.965 oz I&O: 09/24/17 09/25/17 09/26/17 06:59 06:59 06:59 Intake Total 100 2920 Output Total 950 Balance 100 1970 Result Diagrams: 09/23/17 04:49 09/23/17 04:49 Additional Labs: Microbiology 09/13/17 Unknown Knee aspirate - Pending Body Fluid Culture - Final 09/13/17 15:36 Venous blood - Left Arm Blood Culture - Final NO GROWTH IN 5 DAYS 09/13/17 15:34 Venous blood - Right Arm Blood Culture - Final NO GROWTH IN 5 DAYS Phys Exam - Physical Examination Constitutional: NAD HEENT: PERRLA, moist MMs, sclera anicteric, oral pharynx no lesions Neck: no nodes, no JVD, supple, full ROM Respiratory: no wheezing, no rales, no rhonchi, clear to auscultation bilateral Cardiovascular: RRR, no significant murmur Gastrointestinal: soft, non-tender, no distention, positive bowel sounds Musculoskeletal: pulses present, edema present left leg erythema better,swelling down Neurological: non-focal, normal sensation, moves all 4 limbs Psychiatric: normal affect, A&O x 3 Skin: no rash Dx/Plan (1) Cellulitis of left lower extremity Code(s): L03.116 - CELLULITIS OF LEFT LOWER LIMB Status: Acute Comment: (2) Knee effusion, left Code(s): M25.462 - EFFUSION, LEFT KNEE Status: Acute Comment: s/p arthrocentesis (3) Hypokalemia Code(s): E87.6 - HYPOKALEMIA Status: Resolved - Plan continue antibiotics ABx infuion to be set up for outpt ,then DC home. -: PICC in place -: weekly labs w results to ID. -: hemodynamically stable * . Review of Systems - Review of Systems Constitutional: negative: fever, chills, sweats, weakness, malaise, other ENT: negative: Ear Pain, Ear Discharge, Nose Pain, Nose Discharge, Nose Congestion, Mouth Pain, Mouth Swelling, Throat Pain, Throat Swelling, Other Respiratory: negative: Cough, Dry, Shortness of Breath, Hemoptysis, SOB with Excertion, Pleuritic Pain, Sputum, Wheezing Cardiovascular: negative: chest pain, palpitations, orthopnea, paroxysmal nocturnal dyspnea, edema, light headedness, other Gastrointestinal: negative: Nausea, Vomiting, Abdominal Pain, Diarrhea, Constipation, Melena, Hematochezia, Other Genitourinary: negative: Dysuria, Frequency, Incontinence, Hematuria, Retention , Other Musculoskeletal: negative: Neck Pain, Shoulder Pain, Arm Pain, Back Pain, Hand Pain, Leg Pain, Foot Pain, Other Skin: Rash (left leg) Neurological: negative: Weakness, Numbness, Incoordination, Change in Speech, Confusion, Seizures, Other - Medications/Allergies Allergies/Adverse Reactions: Allergies Allergy/AdvReac Type Severity Reaction Status Date / Time No Known Allergies Allergy Unverified 09/13/17 17:12 Medications: Current Medications Acetaminophen (Tylenol) 650 mg PO Q6H PRN PRN Reason: Headache/Temp >101F/Mild Pain Hydrocodone Bitart/Acetaminophen ([place] 10/325) 2 tab PO Q4H PRN PRN Reason: Severe Pain (7-10) Last Admin: 09/25/17 11:28 Dose: 2 tab Hydrocodone Bitart/Acetaminophen ([place] 5/325) 1 tab PO Q4H PRN PRN Reason: Moderate Pain (4-6) Al Hydroxide/Mg Hydroxide (Maalox) 15 ml PO Q4H PRN PRN Reason: Heartburn or Indigestion Artificial Tears (Tears Naturale) 0 drop EA EYE PRN PRN PRN Reason: Dry Eyes Enoxaparin Sodium (Lovenox) 30 mg SC 0900 [facility] Last Admin: 09/25/17 08:02 Dose: 30 mg Famotidine (Pepcid) 20 mg PO BID [facility] Last Admin: 09/25/17 08:02 Dose: 20 mg Guaifenesin (Robitussin Sf) 200 mg PO Q4H PRN PRN Reason: Cough Hydralazine HCl (Apresoline) 10 mg SLOW IVP Q4H PRN PRN Reason: Systolic BP > 180 Ceftriaxone Sodium 2 gm/ (Sodium Chloride) 100 mls @ 200 mls/hr IVPB Q24HR [facility] Last Admin: 09/24/17 14:53 Dose: 100 mls Ibuprofen (Motrin) 800 mg PO Q8H PRN PRN Reason: Mild Pain (1-3) Last Admin: 09/25/17 11:27 Dose: 800 mg Loperamide HCl (Imodium) 2 mg PO PRN PRN PRN Reason: Diarrhea/Loose Stools Loratadine (Claritin) 10 mg PO DAILYPRN PRN PRN Reason: Sinus Symptoms Magnesium Hydroxide (Milk Of Magnesium) 30 ml PO DAILYPRN PRN PRN Reason: Constipation Mineral Oil/White Petrolatum (Eucerin Cream) 0 gm TOP BIDPRN PRN PRN Reason: Dry Skin Morphine Sulfate (Morphine) 2 mg IVP Q2H PRN PRN Reason: Moderate Pain (4-6) Ondansetron HCl (Zofran) 4 mg IVP Q6H PRN PRN Reason: Nausea Ondansetron HCl (Zofran Odt) 4 mg PO Q6H PRN PRN Reason: Nausea/Vomiting Phenol (Chloraseptic [place] 180 Ml Bot) 0 ml PO PRN PRN PRN Reason: Sore Throat Polyethylene Glycol (Miralax) 17 gm PO DAILY [facility] Last Admin: 09/25/17 08:05 Dose: Not Given Promethazine HCl (Phenergan) 12.5 mg IM Q4H PRN PRN Reason: Nausea Senna (Senokot) 2 tab PO HSPRN PRN PRN Reason: Constipation Sodium Chloride (Flush - Normal Saline) 10 ml IVF PRN PRN PRN Reason: Saline Flush Sodium Chloride (Flush - Normal Saline) 10 ml IVF Q12HR [facility] Last Admin: 09/25/17 08:05 Dose: 10 ml Sodium Chloride ([place] Nasal [place] 0.65%) 0 ml EA NARE QIDPRN PRN PRN Reason: Nasal Congestion Temazepam (Restoril) 15 mg PO HSPRN PRN PRN Reason: Insomnia Tramadol HCl (Ultram) 50 mg PO Q6H PRN PRN Reason: Mild Pain (1-3) Tramadol HCl (Ultram) 100 mg PO Q6H PRN PRN Reason: Moderate Pain (4-6) Last Admin: 09/18/17 17:30 Dose: 100 mg
[2017-09-25] MEDS: cefTRIAXone\\ROCEPHIN 2 GM in Sodium Chloride 0.9% 100 ML IVPB SCH (13:36)
--- NOTE | 2017-09-26 06:38 | DIS ---
DATE OF ADMISSION: 09/13/2017 DATE OF DISCHARGE: 09/25/2017 DISCHARGE DISPOSITION: Home. PRIMARY CARE PHYSICIAN: None. DISCHARGE FOLLOWUP: Infectious Disease, Dr. Mathis. CONDITION AT THE TIME OF DISCHARGE: Stable and improved. DISCHARGE DIAGNOSES: 1. Left lower extremity extensive cellulitis with swelling, possibility a group A streptococcal infe ction. 2. Left knee effusion, status post arthrocentesis. 3. Hypokalemia. IN-HOUSE CONSULTATIONS: 1. Orthopedics, Dr. Downey. 2. Infectious Disease, Dr. Mathis. PROCEDURES: Done in the hospital include, 1. Lower extremity MRI, which shows large crescentic collection of fluid extending from the lateral left thigh to the level of the ankle, which at the level of the knee is markedly complex, concerns fo r abscess, also abnormal edema suggesting infectious myositis of the adductors, vastus lateralis and biceps femoris musculature. Abdominal edema in the anterior and posterior compartment concerning for myositis. No evidence of osteomyelitis. 2. Placement of a PICC line. DISCHARGE MEDICATIONS: Rocephin 2 grams IV piggyback daily for the next 2 weeks. He was set up with the outpatient infusion center. HISTORY OF PRESENT ILLNESS: Mr. Klein was initially admitted to Orthopedics Service for complaints o f extensive left leg swelling, painful erythema, and tenderness. There was concern for necrotizing f asciitis. He was admitted as a transfer from [facility] in [place]. He was admitted there f or complaints of knee pain and swelling and was on antibiotics for possible infection. His leg progr essively got worse and he was transferred here for higher level of care. CONSULTATIONS: Orthopedics, Dr. Agarwal, admitted this patient and ID was consulted. HOSPITAL COURSE: The patient has synovial aspirate done by Orthopedic Surgery of the knee and the fl uid was sent for culture. It was negative. ID saw the patient and Dr. Mathis recommended continuatio n of protracted course of IV antibiotics. All of his cultures were followed and were negative. Dr. Mathis' final recommendation was that this is most likely a beta hemolytic streptococcal infection wit h extensive cellulitis. PICC line was placed and eventually the patient was discharged once outpatie nt antibiotic was arranged for him with the help of the case management. He will get outpatient anti biotics at [facility] in the outpatient setting and weekly labs will be followed by Dr. Mathis. He is hemodynamically stable and eager to go home and his symptoms have much improved, though not com pletely resolved. He was seen and examined prior to discharge. Please see hospitalist progress note from the day of discharge for further information and [id number] interaction.
== END 2017-09-25 16:29 | disposition home or self-care (01) | DRG 565 ==
LOC: ERS 14:58 → SURG B 19:21
PROVIDERS: ADMIT Orthopaedic Surgery; ATTEND Orthopaedic Surgery
PROC: 0S9D3ZX Drainage of Left Knee Joint, Percutaneous Approach, Diagnostic (ICD-10-PCS; 2017-09-13)
PROC: 02HV33Z Insertion of Infusion Device into Superior Vena Cava, Percutaneous Approach (ICD-10-PCS; principal; 2017-09-24)
PROC: B5181ZA Fluoroscopy of Superior Vena Cava using Low Osmolar Contrast, Guidance (ICD-10-PCS; 2017-09-24)
DX: M25.462 Effusion, left knee (principal); L03.116 Cellulitis of left lower limb; B95.4 Other streptococcus as the cause of diseases classified elsewhere; E87.6 Hypokalemia; F17.210 Nicotine dependence, cigarettes, uncomplicated
CPT/HCPCS: 20610; 36415; 36569; 71045; 80048; 80053; 80202; 82550; 82945; 83605; 84157; 84560; 85025; 85060; 85610; 85652; 85730; 86140; 86803; 86850; 86900; 86901; 87040; 87070; 87205; 87389; 89051; 89060; 90471; 90715; 93005; 96361; 96365; 96368; 96375; 96376; A4216; C1751; G8978-GP-CL; G8979-GP-CL; G8980-GP-CL; J0696; J1644; J1650; J1885; J2001; J2270; J2543; J3370; J3490; J7050